=== PATIENT | male | born 1980 | race African-American/Black ===

== ENCOUNTER 2016-04-10 23:43 | Emergency (ER) | payer MEDICARE, OTHER ==
[~2016-04-10 23:43] MED LIST: /CELE20CA PO; BENA25CA PO; DOCU10ELUD PO; GEOD40CA PO; LEVO500T PO; NEUR600T PO; OXYCO5TA PO; TYLE325T5 PO
[2016-04-11] MEDS ORDERED: KETOROLAC 30 MG/ML VIAL (J1885) As Ordered ONE (02:33)
[2016-04-11] MEDS ORDERED: LIDOCAINE VISCOUS 2% SOLN 15ML UDC As Ordered ONE (02:33)
--- NOTE | 2016-04-11 02:45 | EDDOCDS ---
Nurse's Notes [facility] Name: Efrain Marshall Age: 36 yrs Sex: Male : 1980 Arrival Date: 04/10/2016 Time: 23:43 Bed I3 / M3 Private MD: NO PRIMARY PHYSICIAN, . Diagnosis: Streptococcal pharyngitis Presentation: 04/10 23:58 Presenting complaint: Patient states: seen at [facility] earlier today given medications cz pt states has pain in his throat whenever he swallows talks etc. Adult Sepsis Screening: The patient does not have new or worsening altered mentation. Patient's respiratory rate is less than 22. Systolic blood pressure is greater than 100. Patient has a qSOFA score of 0- Negative Sepsis Screen. Suicide/Homicide risk assessment- the patient denies having any suicidal and/or homicidal ideations and does not present with any other emotional, behavioral or mental health complaints. Status: Patient is not a technical services consultant or dependent. Transition of care: patient was not received from another setting of care. 23:58 Acuity: FRANKLIN Level 5 cz 23:58 Method Of Arrival: Walkin/Carried/Asstd cz Triage Assessment: 04/11 00:03 General: Appears in no apparent distress. Pain: Pain currently is 9 out of 10 on a pain cz scale. HIV screening NA for this visit Offered previously. Historical: - Allergies: No known drug Allergies; - Home Meds: 1. zaleplon 10 mg oral cap once daily 2. clonazepam 0.5 mg Oral tab 3 times per day 3. lamotrigine 100 mg Oral tab once daily 4. Lidocaine Viscous Oral (Last dose: 04/10/2016 19:00) 5. amoxicillin 875 mg Oral tab every 12 hours (Last dose: Unknown) - PMHx: anger issues; - PSHx: none; - Social history: Smoking status: Patient uses tobacco products, current some day smoker. No barriers to communication noted, The patient speaks fluent Rwandan, Speaks appropriately for age. - Family history: Not pertinent. - : The pt / caregiver states he / she is not on anticoagulants. Home medication list is obtained from the patient. - Exposure Risk Screening:: None identified. Screenin:41 Screening information is obtained from the patient. Fall risk: No risks identified. jmb Assistance ADL's: requires no assistance with activities of daily living. Abuse/DV Screen: The patient / caregiver reports he/she is: not in a situation that causes fear, pain or injury. Nutritional screening: No deficits noted. Advance Directives: Currently, there is no health care proxy. There is no active DNR order. There is no living will. There is no Power of Plow And Boring Machine Tender. home support is adequate. Assessment: 02:41 General: Patient instructed on discharge instructions. Patient asked if there were any b questions regarding discharge, patient stated no. Patient signed discharge instructions. Patient discharged in stable condition. . Vital Signs: 04/10 23:45 BP 134 / 83; Pulse 89; Resp 18 S; Temp 99.9(O); Pulse Ox 98% on R/A; Weight 105.23 kg gr2 (R); Height 5 ft. 8 in. (172.72 cm) (R); Pain 7/10; 04/11 02:41 BP 128 / 74; Pulse 90; Resp 20; Temp 98.8(TE); Pulse Ox 98% on R/A; Pain 2/10; b 04/10 23:45 Body Mass Index 35.28 (105.23 kg, 172.72 cm) gr2 Vitals: 04/10 23:45 Log In Time: April 10, 2016 at 23:45. gr2 ED Course: 23:45 Patient visited by Cali Chapman. gr2 23:45 NO PRIMARY PHYSICIAN, . is Private Physician. gr2 23:45 Patient moved to Waiting gr2 23:46 Patient visited by Cali Chapman. gr2 23:46 Patient moved to Pre RCE gr2 04/11 00:00 Triage Initiated cz 02:05 Patient visited by Bucky Foster PCA. kb5 02:05 Patient moved to I3 / M3 b 02:23 Homar Newton DO is Attending Physician. mm11 02:23 Patient visited by Homar Newton DO. mm11 02:31 Patient visited by Homar Newton DO. mm11 02:41 The patient / caregiver is instructed regarding the plan of care and ED course. jmb 02:41 No IV's were initiated during this patient's visit. No procedures done that require b assistance. Administered Medications: 02:41 Drug: ketorolac 60 mg [ketorolac 30 mg/mL (1 mL) injection solution (2 mL)] Route: IM; jmb Site: left deltoid; 02:41 Drug: Lidocaine Viscous 15 ml [Lidocaine Viscous 2 % mucosal solution (15 mL)] Route: jmb Mucous Membrane; Site: affected area; Order Results: There are currently no results for this order. Outcome: 02:32 Discharge ordered by Provider. mm11 02:41 Discharge Assessment: Patient awake, alert and oriented x 3. No cognitive and/or jmb functional deficits noted. Patient verbalized understanding of disposition instructions. Patient awake and alert. obeys commands, Oriented to person, place and time. Patient verbalized understanding of disposition instructions. Patient has no functional deficits. patient administered narcotics - no. The following High Risk Discharge criteria are identified: None. Discharged to home ambulatory, with significant other. Condition: stable Condition: improved. Discharge instructions given to patient, Instructed on discharge instructions, follow up and referral plans. Demonstrated understanding of instructions, Pt was receptive of discharge instructions/ teaching. No special radiology studies were completed. Property sent home with patient. 02:44 Patient left the ED. suma Signatures: Dev Saleem, RN RN Bucky Root, LEVEL VIAL INSPECTOR AND TESTER LEVEL VIAL INSPECTOR AND TESTER kb5 Homar Newton DO DO mm11 Cali Chapman gr2 Kamran Hall,RN RN suma MTDD
--- NOTE | 2016-04-11 02:45 | EDDOCDS ---
Physician Documentation [facility] Name: Efrain Marshall Age: 36 yrs Sex: Male : 1980 Arrival Date: 04/10/2016 Time: 23:43 Bed I3 / M3 Private MD: NO PRIMARY PHYSICIAN, . Disposition: 04/11/16 02:32 Discharged to Home/Self Care. Impression: Streptococcal pharyngitis. - Condition is Stable. - Discharge Instructions: Strep Throat, Strep Throat, [id number]. - Medication Reconciliation, Local Pharmacy Hours form. - Follow up: Private Physician; When: 2 - 3 days; Reason: Continuance of care. - Problem is an acute exacerbation. - Symptoms have improved. Historical: - Allergies: No known drug Allergies; - Home Meds: 1. zaleplon 10 mg oral cap once daily 2. clonazepam 0.5 mg Oral tab 3 times per day 3. lamotrigine 100 mg Oral tab once daily 4. Lidocaine Viscous Oral (Last dose: 04/10/2016 19:00) 5. amoxicillin 875 mg Oral tab every 12 hours (Last dose: Unknown) - PMHx: anger issues; - PSHx: none; - Social history: Smoking status: Patient uses tobacco products, current some day smoker. No barriers to communication noted, The patient speaks fluent Turkish, Speaks appropriately for age. - Family history: Not pertinent. - : The pt / caregiver states he / she is not on anticoagulants. Home medication list is obtained from the patient. - Exposure Risk Screening:: None identified. Vital Signs: 04/10 23:45 BP 134 / 83; Pulse 89; Resp 18 S; Temp 99.9(O); Pulse Ox 98% on R/A; Weight 105.23 kg / gr2 231.99 lbs (R); Height 5 ft. 8 in. (172.72 cm) (R); Pain 7/10; 04/11 02:41 BP 128 / 74; Pulse 90; Resp 20; Temp 98.8(TE); Pulse Ox 98% on R/A; Pain 2/10; jmb 04/10 23:45 Body Mass Index 35.28 (105.23 kg, 172.72 cm) gr2 MDM: 02:31 ketorolac 60 mg IM once ordered. mm11 02:31 Lidocaine Viscous Liquid 2 % 15 ml Mucous Membrane in affected area once ordered. mm11 02:42 Financial registration complete. hs2 Administered Medications: 02:41 Drug: ketorolac 60 mg [ketorolac 30 mg/mL (1 mL) injection solution (2 mL)] Route: IM; jmb Site: left deltoid; 02:41 Drug: Lidocaine Viscous 15 ml [Lidocaine Viscous 2 % mucosal solution (15 mL)] Route: jmb Mucous Membrane; Site: affected area; Signatures: Dev Saleem RN RN cz Maynard, Matthew, DO mm11 Kamran Hall RN RN jmb Sandra Newman, Reg Reg hs2 MTDD
--- NOTE | 2016-04-13 03:45 | EDDOCDS ---
Nurse's Notes [facility] Name: Efrain Marshall Age: 36 yrs Sex: Male : 1980 Arrival Date: 04/10/2016 Time: 23:43 Bed I3 / M3 Private MD: NO PRIMARY PHYSICIAN, . Diagnosis: Streptococcal pharyngitis Presentation: 04/10 23:58 Presenting complaint: Patient states: seen at [facility] earlier today given medications cz pt states has pain in his throat whenever he swallows talks etc. Adult Sepsis Screening: The patient does not have new or worsening altered mentation. Patient's respiratory rate is less than 22. Systolic blood pressure is greater than 100. Patient has a qSOFA score of 0- Negative Sepsis Screen. Suicide/Homicide risk assessment- the patient denies having any suicidal and/or homicidal ideations and does not present with any other emotional, behavioral or mental health complaints. Status: Patient is not a guest services representative or dependent. Transition of care: patient was not received from another setting of care. 23:58 Acuity: FRANKLIN Level 5 cz 23:58 Method Of Arrival: Walkin/Carried/Asstd cz Triage Assessment: 04/11 00:03 General: Appears in no apparent distress. Pain: Pain currently is 9 out of 10 on a pain cz scale. HIV screening NA for this visit Offered previously. Historical: - Allergies: No known drug Allergies; - Home Meds: 1. zaleplon 10 mg oral cap once daily 2. clonazepam 0.5 mg Oral tab 3 times per day 3. lamotrigine 100 mg Oral tab once daily 4. Lidocaine Viscous Oral (Last dose: 04/10/2016 19:00) 5. amoxicillin 875 mg Oral tab every 12 hours (Last dose: Unknown) - PMHx: anger issues; - PSHx: none; - Social history: Smoking status: Patient uses tobacco products, current some day smoker. No barriers to communication noted, The patient speaks fluent Central African, Speaks appropriately for age. - Family history: Not pertinent. - : The pt / caregiver states he / she is not on anticoagulants. Home medication list is obtained from the patient. - Exposure Risk Screening:: None identified. Screenin:41 Screening information is obtained from the patient. Fall risk: No risks identified. jmb Assistance ADL's: requires no assistance with activities of daily living. Abuse/DV Screen: The patient / caregiver reports he/she is: not in a situation that causes fear, pain or injury. Nutritional screening: No deficits noted. Advance Directives: Currently, there is no health care proxy. There is no active DNR order. There is no living will. There is no Power of Arabic Professor. home support is adequate. Assessment: 02:41 General: Patient instructed on discharge instructions. Patient asked if there were any b questions regarding discharge, patient stated no. Patient signed discharge instructions. Patient discharged in stable condition. . Vital Signs: 04/10 23:45 BP 134 / 83; Pulse 89; Resp 18 S; Temp 99.9(O); Pulse Ox 98% on R/A; Weight 105.23 kg gr2 (R); Height 5 ft. 8 in. (172.72 cm) (R); Pain 7/10; 04/11 02:41 BP 128 / 74; Pulse 90; Resp 20; Temp 98.8(TE); Pulse Ox 98% on R/A; Pain 2/10; b 04/10 23:45 Body Mass Index 35.28 (105.23 kg, 172.72 cm) gr2 Vitals: 04/10 23:45 Log In Time: April 10, 2016 at 23:45. gr2 ED Course: 23:45 Patient visited by Cali Chapman. gr2 23:45 NO PRIMARY PHYSICIAN, . is Private Physician. gr2 23:45 Patient moved to Waiting gr2 23:46 Patient visited by Cali Chapman. gr2 23:46 Patient moved to Pre RCE gr2 04/11 00:00 Triage Initiated cz 02:05 Patient visited by Bucky Foster PCA. kb5 02:05 Patient moved to I3 / M3 [place] 02:23 Homar Newton DO is Attending Physician. mm11 02:23 Patient visited by Homar Newton DO. mm11 02:31 Patient visited by Homar Newton DO. mm11 02:41 The patient / caregiver is instructed regarding the plan of care and ED course. b 02:41 No IV's were initiated during this patient's visit. No procedures done that require b assistance. 03:10 [facility] Payment Agreement was scanned into [employer] and attached to record. hs2 10:20 T-Sheet-- Draft Copy was scanned into [employer] and attached to record. gb Administered Medications: 02:41 Drug: ketorolac 60 mg [ketorolac 30 mg/mL (1 mL) injection solution (2 mL)] Route: IM; jmb Site: left deltoid; 02:41 Drug: Lidocaine Viscous 15 ml [Lidocaine Viscous 2 % mucosal solution (15 mL)] Route: jmb Mucous Membrane; Site: affected area; Order Results: There are currently no results for this order. Outcome: 02:32 Discharge ordered by Provider. mm11 02:41 Discharge Assessment: Patient awake, alert and oriented x 3. No cognitive and/or jmb functional deficits noted. Patient verbalized understanding of disposition instructions. Patient awake and alert. obeys commands, Oriented to person, place and time. Patient verbalized understanding of disposition instructions. Patient has no functional deficits. patient administered narcotics - no. The following High Risk Discharge criteria are identified: None. Discharged to home ambulatory, with significant other. Condition: stable Condition: improved. Discharge instructions given to patient, Instructed on discharge instructions, follow up and referral plans. Demonstrated understanding of instructions, Pt was receptive of discharge instructions/ teaching. No special radiology studies were completed. Property sent home with patient. 02:44 Patient left the ED. suma Signatures: Dev Saleem, RN Christelle Rodriguez, Reg Reg gb Bucky Foster, NATURAL GAS BASIS TRADER NATURAL GAS BASIS TRADER kb5 Homar Newton DO DO mm11 Cali Chapman gr2 Kamran Hall RN RN jmb Stanton, Hillary, Reg Reg hs2 Chart Complete MTDD
--- NOTE | 2016-04-13 03:45 | EDDOCDS ---
Physician Documentation [facility] Name: Efrain Marshall Age: 36 yrs Sex: Male : 1980 Arrival Date: 04/10/2016 Time: 23:43 Bed I3 / M3 Private MD: NO PRIMARY PHYSICIAN, . Disposition: 04/11/16 02:32 Discharged to Home/Self Care. Impression: Streptococcal pharyngitis. - Condition is Stable. - Discharge Instructions: Strep Throat, Strep Throat, [id number]. - Medication Reconciliation, Local Pharmacy Hours form. - Follow up: Private Physician; When: 2 - 3 days; Reason: Continuance of care. - Problem is an acute exacerbation. - Symptoms have improved. Historical: - Allergies: No known drug Allergies; - Home Meds: 1. zaleplon 10 mg oral cap once daily 2. clonazepam 0.5 mg Oral tab 3 times per day 3. lamotrigine 100 mg Oral tab once daily 4. Lidocaine Viscous Oral (Last dose: 04/10/2016 19:00) 5. amoxicillin 875 mg Oral tab every 12 hours (Last dose: Unknown) - PMHx: anger issues; - PSHx: none; - Social history: Smoking status: Patient uses tobacco products, current some day smoker. No barriers to communication noted, The patient speaks fluent Arabic, Speaks appropriately for age. - Family history: Not pertinent. - : The pt / caregiver states he / she is not on anticoagulants. Home medication list is obtained from the patient. - Exposure Risk Screening:: None identified. Vital Signs: 04/10 23:45 BP 134 / 83; Pulse 89; Resp 18 S; Temp 99.9(O); Pulse Ox 98% on R/A; Weight 105.23 kg / gr2 231.99 lbs (R); Height 5 ft. 8 in. (172.72 cm) (R); Pain 7/10; 04/11 02:41 BP 128 / 74; Pulse 90; Resp 20; Temp 98.8(TE); Pulse Ox 98% on R/A; Pain 2/10; jmb 04/10 23:45 Body Mass Index 35.28 (105.23 kg, 172.72 cm) gr2 MDM: 02:31 ketorolac 60 mg IM once ordered. mm11 02:31 Lidocaine Viscous Liquid 2 % 15 ml Mucous Membrane in affected area once ordered. mm11 02:42 Financial registration complete. hs2 03:10 [facility] Payment Agreement was scanned into [employer] and attached to record. hs2 10:20 T-Sheet-- Draft Copy was scanned into [employer] and attached to record. gb Administered Medications: 02:41 Drug: ketorolac 60 mg [ketorolac 30 mg/mL (1 mL) injection solution (2 mL)] Route: IM; jmb Site: left deltoid; 02:41 Drug: Lidocaine Viscous 15 ml [Lidocaine Viscous 2 % mucosal solution (15 mL)] Route: jmb Mucous Membrane; Site: affected area; Signatures: Dev Saleem, Christelle Rodriguez RN, Reg Reg gb Homar Newton DO DO mm11 Kamran Hall RN RN jmb Sandra Newman, Reg Reg hs2 The chart was reviewed and I authenticate all verbal orders and agree with the evaluation and treatment provided.Attachments: 03:10 [facility] Payment Agreement hs2 10:20 T-Sheet-- Draft Copy gb Chart Complete [facility]
--- NOTE | 2016-04-13 03:45 | EDDOCDS ---
Physician Documentation [facility] Name: Efrain Marshall Age: 36 yrs Sex: Male : 1980 Arrival Date: 04/10/2016 Time: 23:43 Bed I3 / M3 Private MD: NO PRIMARY PHYSICIAN, . Disposition: 04/11/16 02:32 Discharged to Home/Self Care. Impression: Streptococcal pharyngitis. - Condition is Stable. - Discharge Instructions: Strep Throat, Strep Throat, [id number]. - Medication Reconciliation, Local Pharmacy Hours form. - Follow up: Private Physician; When: 2 - 3 days; Reason: Continuance of care. - Problem is an acute exacerbation. - Symptoms have improved. Historical: - Allergies: No known drug Allergies; - Home Meds: 1. zaleplon 10 mg oral cap once daily 2. clonazepam 0.5 mg Oral tab 3 times per day 3. lamotrigine 100 mg Oral tab once daily 4. Lidocaine Viscous Oral (Last dose: 04/10/2016 19:00) 5. amoxicillin 875 mg Oral tab every 12 hours (Last dose: Unknown) - PMHx: anger issues; - PSHx: none; - Social history: Smoking status: Patient uses tobacco products, current some day smoker. No barriers to communication noted, The patient speaks fluent Lao, Speaks appropriately for age. - Family history: Not pertinent. - : The pt / caregiver states he / she is not on anticoagulants. Home medication list is obtained from the patient. - Exposure Risk Screening:: None identified. Vital Signs: 04/10 23:45 BP 134 / 83; Pulse 89; Resp 18 S; Temp 99.9(O); Pulse Ox 98% on R/A; Weight 105.23 kg / gr2 231.99 lbs (R); Height 5 ft. 8 in. (172.72 cm) (R); Pain 7/10; 04/11 02:41 BP 128 / 74; Pulse 90; Resp 20; Temp 98.8(TE); Pulse Ox 98% on R/A; Pain 2/10; jmb 04/10 23:45 Body Mass Index 35.28 (105.23 kg, 172.72 cm) gr2 MDM: 02:31 ketorolac 60 mg IM once ordered. mm11 02:31 Lidocaine Viscous Liquid 2 % 15 ml Mucous Membrane in affected area once ordered. mm11 02:42 Financial registration complete. hs2 03:10 [facility] Payment Agreement was scanned into [employer] and attached to record. hs2 10:20 T-Sheet-- Draft Copy was scanned into [employer] and attached to record. gb Administered Medications: 02:41 Drug: ketorolac 60 mg [ketorolac 30 mg/mL (1 mL) injection solution (2 mL)] Route: IM; jmb Site: left deltoid; 02:41 Drug: Lidocaine Viscous 15 ml [Lidocaine Viscous 2 % mucosal solution (15 mL)] Route: jmb Mucous Membrane; Site: affected area; Signatures: Dev Saleem, Christelle Rodriguez RN, Reg Reg gb Homar Newton DO DO mm11 Kamran Hall RN RN jmb Sandra Newman, Reg Reg hs2 The chart was reviewed and I authenticate all verbal orders and agree with the evaluation and treatment provided.Attachments: 03:10 [facility] Payment Agreement hs2 10:20 T-Sheet-- Draft Copy gb Chart [facility]
== END 2016-04-11 02:44 | disposition home or self-care (01) ==
LOC: M ED 23:43
DX: J02.0 Streptococcal pharyngitis (principal); F17.210 Nicotine dependence, cigarettes, uncomplicated; Z79.899 Other long term (current) drug therapy
CPT/HCPCS: 96372; 99283; J1885

== ENCOUNTER 2016-04-12 18:55 | Emergency (ER) | payer MEDICARE ==
--- NOTE | 2016-04-12 20:34 | EDDOCDS ---
Nurse's Notes [facility] Name: Efrain Marshall Age: 36 yrs Sex: Male : 1980 Arrival Date: 04/12/2016 Time: 18:55 Bed TR8 Private MD: NO PRIMARY PHYSICIAN, . Diagnosis: Streptococcal pharyngitis;Acute tonsillitis Presentation: 04/12 19:02 Presenting complaint: Patient states: "I was seen here last night for the same thing mb9 and they told me to come back if it didn't get any better and tonight it hurts to swallow and the pain is like a 10". Adult Sepsis Screening: The patient does not have new or worsening altered mentation. Patient's respiratory rate is less than 22. Systolic blood pressure is greater than 100. Patient has a qSOFA score of 0- Negative Sepsis Screen. Suicide/Homicide risk assessment- the patient denies having any suicidal and/or homicidal ideations and does not present with any other emotional, behavioral or mental health complaints. Status: Patient is not a business services officer or dependent. Transition of care: patient was not received from another setting of care. 19:02 Acuity: FRANKLIN Level 4 mb9 19:02 Method Of Arrival: Walkin/Carried/Asstd mb9 Triage Assessment: 19:07 General: Appears in no apparent distress, Behavior is appropriate for age, cooperative. mb9 Pain: Location: neck Pain currently is 10 out of 10 on a pain scale. HIV screening NA for this visit Offered previously. EENT: Throat is reddened. Respiratory: Airway is patent Respiratory effort is even, unlabored. Historical: - Allergies: no known allergies; - Home Meds: 1. amoxicillin 875 mg Oral tab every 12 hours (Last dose: 04/12/2016) 2. clonazepam 0.5 mg Oral tab 3 times per day (Last dose: 04/12/2016) 3. lamotrigine 200 mg oral tab once daily (Last dose: 04/11/2016) 4. trazodone 150 mg Oral tab 1 tab at bedtime - PMHx: Anger issues; - PSHx: none; - Social history: Smoking status: Patient uses tobacco products, current some day smoker. No barriers to communication noted. - Family history: Not pertinent, No immediate family members are acutely ill. - : The pt / caregiver states he / she is not on anticoagulants. Home medication list is obtained from the patient. - Exposure Risk Screening:: None identified. Screenin:30 Screening information is obtained from the patient. Fall risk: No risks identified. kmg1 Assistance ADL's: requires no assistance with activities of daily living. Abuse/DV Screen: The patient / caregiver reports he/she is: not in a situation that causes fear, pain or injury. Nutritional screening: No deficits noted. Advance Directives: There is no active DNR order. home support is adequate. Assessment: 20:30 General: Appears in no apparent distress, ill, Behavior is appropriate for age, kmg1 cooperative. Pain: Location: throat Pain currently is 6 out of 10 on a pain scale. Quality of pain is described as sore. Neurological: No deficits noted. Level of Consciousness is awake, alert. Respiratory: Airway is patent Respiratory effort is even, unlabored, Respiratory pattern is regular, symmetrical. Vital Signs: 18:57 BP 134 / 79; Pulse 105; Resp 18 S; Temp 98.1(O); Pulse Ox 98% on R/A; Weight 107.05 kg gr2 (R); Height 5 ft. 8 in. (172.72 cm) (R); Pain 6/10; 18:57 Body Mass Index 35.88 (107.05 kg, 172.72 cm) gr2 Vitals: 18:57 Log In Time: April 12, 2016 at 18:57. gr2 ED Course: 18:56 Patient visited by Cali Chapman. gr2 18:56 Patient moved to Waiting gr2 18:57 NO PRIMARY PHYSICIAN, . is Private Physician. gr2 18:59 Patient visited by Cali Chapman. gr2 19:03 Triage Initiated mb9 19:04 Patient moved to Pre RCE mcp 19:36 Patient moved to Triage 1 mb9 19:44 Miriam Levy PA-C is PHCP. ef1 19:44 Homar Newton DO is Attending Physician. ef1 20:02 Patient visited by Miriam Levy PA-C. ef1 20:15 [facility] is Referral Physician. ef1 20:19 [facility] Payment Agreement was scanned into [employer] and attached to record. gjb 20:30 The patient / caregiver is instructed regarding the plan of care and ED course. kmg1 20:30 No IV's were initiated during this patient's visit. No procedures done that require [facility] [place] assistance. 20:31 Patient moved to [address] Order Results: There are currently no results for this order. Outcome: 20:15 Discharge ordered by Provider. ef1 20:30 Discharge Assessment: Patient awake, alert and oriented x 3. No cognitive and/or kmg1 functional deficits noted. Patient verbalized understanding of disposition instructions. Patient awake and alert. patient administered narcotics - no. The following High Risk Discharge criteria are identified: None. Discharged to home ambulatory. Condition: stable. Discharge instructions given to patient, Instructed on discharge instructions, follow up and referral plans. medication usage, Demonstrated understanding of instructions, medications, Pt was receptive of discharge instructions/ teaching. Prescriptions given X 3. No special radiology studies were completed. Property sent home with patient. 20:33 Patient left the ED. [facility] [place] Signatures: Tatyana Pak RN RN [facility] [place] Eneida Griffin RN RN mcp Feola, Erica, PA-C PA-C ef1 Renata Alvarado RN RN [facility] Cali Chapman gr2 Jameson AllenRN RN jose9 Sherry Arriaga Corrections: (The following items were deleted from the chart) 19:07 19:02 Presenting complaint: Patient states: "I was seen here last night for the same mb9 thing and they told me to come back if it didn't get any better and tonight it hurts to swallow and the pain is like a 10". mb9 MTDD
--- NOTE | 2016-04-12 20:34 | EDDOCDS ---
Physician Documentation [facility] Name: Efrain Marshall Age: 36 yrs Sex: Male : 1980 Arrival Date: 04/12/2016 Time: 18:55 Bed TR8 Private MD: NO PRIMARY PHYSICIAN, . Disposition: 04/12/16 20:15 Discharged to Home/Self Care. Impression: Streptococcal pharyngitis, Acute tonsillitis. - Condition is Stable. - Discharge Instructions: Tonsillitis, Ecee-ha-[id number], Strep Throat, [id number]. - Prescriptions for Ibuprofen 800 mg Oral Tablet - take 1 tablet by ORAL route every 8 hours As needed take with food; 30 tablet. Prednisone 20 mg Oral Tablet - take 3 tablet by ORAL route once daily for 5 days; 15 tablet. Tylenol 325 mg Oral Tablet - take 2 tablets by ORAL route every 6 hours as needed; 30 tablet. - Medication Reconciliation, Local Pharmacy Hours, Referral List Call for Appointment form. - [facility]: [facility] ; When: 1 - 2 days; Reason: Recheck today's complaints, Continuance of care. Follow up: Emergency Department; Reason: Worsening of conditions. - Problem is new. - Symptoms are unchanged. Historical: - Allergies: no known allergies; - Home Meds: 1. amoxicillin 875 mg Oral tab every 12 hours (Last dose: 04/12/2016) 2. clonazepam 0.5 mg Oral tab 3 times per day (Last dose: 04/12/2016) 3. lamotrigine 200 mg oral tab once daily (Last dose: 04/11/2016) 4. trazodone 150 mg Oral tab 1 tab at bedtime - PMHx: Anger issues; - PSHx: none; - Social history: Smoking status: Patient uses tobacco products, current some day smoker. No barriers to communication noted. - Family history: Not pertinent, No immediate family members are acutely ill. - : The pt / caregiver states he / she is not on anticoagulants. Home medication list is obtained from the patient. - Exposure Risk Screening:: None identified. Vital Signs: 04/12 18:57 BP 134 / 79; Pulse 105; Resp 18 S; Temp 98.1(O); Pulse Ox 98% on R/A; Weight 107.05 kg gr2 / 236 lbs (R); Height 5 ft. 8 in. (172.72 cm) (R); Pain 6/10; 18:57 Body Mass Index 35.88 (107.05 kg, 172.72 cm) gr2 MDM: 19:45 Misc. Nursing Order ordered. ef1 20:17 Financial registration complete. gjb 20:19 [facility] Payment Agreement was scanned into [employer] and attached to record. gjb Signatures: Tatyana Pak RN RN kmg1 Miriam Levy, PACelestinaC PA-C ef1 Jameson Allen RN RN mb9 Sherry Arriagab The chart was reviewed and I authenticate all verbal orders and agree with the evaluation and treatment provided.Attachments: 20:19 [facility] [place] Payment Agreement gjb MTDD
--- NOTE | 2016-04-14 21:34 | EDDOCDS ---
Physician Documentation [facility] Name: Efrain Marshall Age: 36 yrs Sex: Male : 1980 Arrival Date: 04/12/2016 Time: 18:55 Bed TR8 Private MD: NO PRIMARY PHYSICIAN, . Disposition: 04/12/16 20:15 Discharged to Home/Self Care. Impression: Streptococcal pharyngitis, Acute tonsillitis. - Condition is Stable. - Discharge Instructions: Tonsillitis, [id number], Strep Throat, [id number]. - Prescriptions for Ibuprofen 800 mg Oral Tablet - take 1 tablet by ORAL route every 8 hours As needed take with food; 30 tablet. Prednisone 20 mg Oral Tablet - take 3 tablet by ORAL route once daily for 5 days; 15 tablet. Tylenol 325 mg Oral Tablet - take 2 tablets by ORAL route every 6 hours as needed; 30 tablet. - Medication Reconciliation, Local Pharmacy Hours, Referral List Call for Appointment form. - Follow up: [facility] ; When: 1 - 2 days; Reason: Recheck today's complaints, Continuance of care. Follow up: Emergency Department; Reason: Worsening of conditions. - Problem is new. - Symptoms are unchanged. Historical: - Allergies: no known allergies; - Home Meds: 1. amoxicillin 875 mg Oral tab every 12 hours (Last dose: 04/12/2016) 2. clonazepam 0.5 mg Oral tab 3 times per day (Last dose: 04/12/2016) 3. lamotrigine 200 mg oral tab once daily (Last dose: 04/11/2016) 4. trazodone 150 mg Oral tab 1 tab at bedtime - PMHx: Anger issues; - PSHx: none; - Social history: Smoking status: Patient uses tobacco products, current some day smoker. No barriers to communication noted. - Family history: Not pertinent, No immediate family members are acutely ill. - : The pt / caregiver states he / she is not on anticoagulants. Home medication list is obtained from the patient. - Exposure Risk Screening:: None identified. Vital Signs: 04/12 18:57 BP 134 / 79; Pulse 105; Resp 18 S; Temp 98.1(O); Pulse Ox 98% on R/A; Weight 107.05 kg gr2 / 236 lbs (R); Height 5 ft. 8 in. (172.72 cm) (R); Pain 09/02; 18:57 Body Mass Index 35.88 (107.05 kg, 172.72 cm) gr2 MDM: 19:45 Misc. Nursing Order ordered. ef1 :17 Financial registration complete. gjb : [facility] Payment Agreement was scanned into [employer] and attached to record. gjb 04/13 10:10 T-Sheet-- Draft Copy was scanned into [employer] and attached to record. gb Signatures: Tatyana Pak, RN RN kmg1 Christelle Driver, Reg Reg gb Miriam Levy, PA-C PA-C ef1 Jameson AllenRN RN mb9 Sherry Arriagab The chart was reviewed and I authenticate all verbal orders and agree with the evaluation and treatment provided.Attachments: 04/12 20:19 [facility] Payment Agreement b 04/13 10:10 T-Sheet-- Draft Copy gb Chart Complete MTDD
--- NOTE | 2016-04-14 21:34 | EDDOCDS ---
Physician Documentation [facility] Name: Efrain Marshall Age: 36 yrs Sex: Male : 1980 Arrival Date: 04/12/2016 Time: 18:55 Bed TR8 Private MD: NO PRIMARY PHYSICIAN, . Disposition: 04/12/16 20:15 Discharged to Home/Self Care. Impression: Streptococcal pharyngitis, Acute tonsillitis. - Condition is Stable. - Discharge Instructions: Tonsillitis, Ekaa-[id number], Strep Throat, Igtv-ro-Jwyo. - Prescriptions for Ibuprofen 800 mg Oral Tablet - take 1 tablet by ORAL route every 8 hours As needed take with food; 30 tablet. Prednisone 20 mg Oral Tablet - take 3 tablet by ORAL route once daily for 5 days; 15 tablet. Tylenol 325 mg Oral Tablet - take 2 tablets by ORAL route every 6 hours as needed; 30 tablet. - Medication Reconciliation, Local Pharmacy Hours, Referral List Call for Appointment form. - Follow up: [facility] ; When: 1 - 2 days; Reason: Recheck today's complaints, Continuance of care. Follow up: Emergency Department; Reason: Worsening of conditions. - Problem is new. - Symptoms are unchanged. Historical: - Allergies: no known allergies; - Home Meds: 1. amoxicillin 875 mg Oral tab every 12 hours (Last dose: 04/12/2016) 2. clonazepam 0.5 mg Oral tab 3 times per day (Last dose: 04/12/2016) 3. lamotrigine 200 mg oral tab once daily (Last dose: 04/11/2016) 4. trazodone 150 mg Oral tab 1 tab at bedtime - PMHx: Anger issues; - PSHx: none; - Social history: Smoking status: Patient uses tobacco products, current some day smoker. No barriers to communication noted. - Family history: Not pertinent, No immediate family members are acutely ill. - : The pt / caregiver states he / she is not on anticoagulants. Home medication list is obtained from the patient. - Exposure Risk Screening:: None identified. Vital Signs: 04/12 18:57 BP 134 / 79; Pulse 105; Resp 18 S; Temp 98.1(O); Pulse Ox 98% on R/A; Weight 107.05 kg gr2 / 236 lbs (R); Height 5 ft. 8 in. (172.72 cm) (R); Pain 09/02; 18:57 Body Mass Index 35.88 (107.05 kg, 172.72 cm) gr2 MDM: 19:45 Misc. Nursing Order ordered. ef1 :17 Financial registration complete. gjb : [facility] Payment Agreement was scanned into [employer] and attached to record. gjb 04/13 10:10 T-Sheet-- Draft Copy was scanned into [employer] and attached to record. gb Signatures: Tatyana Pak, RN RN kmg1 Christelle Driver, Reg Reg gb Miriam Levy, PA-C PA-C ef1 Jameson AllenRN RN mb9 Sherry Arriagab The chart was reviewed and I authenticate all verbal orders and agree with the evaluation and treatment provided.Attachments: 04/12 20:19 [facility] Payment Agreement b 04/13 10:10 T-Sheet-- Draft Copy gb Chart Complete MTDD
--- NOTE | 2016-04-14 21:34 | EDDOCDS ---
Nurse's Notes [facility] Name: Efrain Marshall Age: 36 yrs Sex: Male : 1980 Arrival Date: 04/12/2016 Time: 18:55 Bed TR8 Private MD: NO PRIMARY PHYSICIAN, . Diagnosis: Streptococcal pharyngitis;Acute tonsillitis Presentation: 04/12 19:02 Presenting complaint: Patient states: "I was seen here last night for the same thing mb9 and they told me to come back if it didn't get any better and tonight it hurts to swallow and the pain is like a 10". Adult Sepsis Screening: The patient does not have new or worsening altered mentation. Patient's respiratory rate is less than 22. Systolic blood pressure is greater than 100. Patient has a qSOFA score of 0- Negative Sepsis Screen. Suicide/Homicide risk assessment- the patient denies having any suicidal and/or homicidal ideations and does not present with any other emotional, behavioral or mental health complaints. Status: Patient is not a child and family services specialist or dependent. Transition of care: patient was not received from another setting of care. 19:02 Acuity: FRANKLIN Level 4 mb9 19:02 Method Of Arrival: Walkin/Carried/Asstd mb9 Triage Assessment: 19:07 General: Appears in no apparent distress, Behavior is appropriate for age, cooperative. mb9 Pain: Location: neck Pain currently is 10 out of 10 on a pain scale. HIV screening NA for this visit Offered previously. EENT: Throat is reddened. Respiratory: Airway is patent Respiratory effort is even, unlabored. Historical: - Allergies: no known allergies; - Home Meds: 1. amoxicillin 875 mg Oral tab every 12 hours (Last dose: 04/12/2016) 2. clonazepam 0.5 mg Oral tab 3 times per day (Last dose: 04/12/2016) 3. lamotrigine 200 mg oral tab once daily (Last dose: 04/11/2016) 4. trazodone 150 mg Oral tab 1 tab at bedtime - PMHx: Anger issues; - PSHx: none; - Social history: Smoking status: Patient uses tobacco products, current some day smoker. No barriers to communication noted. - Family history: Not pertinent, No immediate family members are acutely ill. - : The pt / caregiver states he / she is not on anticoagulants. Home medication list is obtained from the patient. - Exposure Risk Screening:: None identified. Screenin:30 Screening information is obtained from the patient. Fall risk: No risks identified. kmg1 Assistance ADL's: requires no assistance with activities of daily living. Abuse/DV Screen: The patient / caregiver reports he/she is: not in a situation that causes fear, pain or injury. Nutritional screening: No deficits noted. Advance Directives: There is no active DNR order. home support is adequate. Assessment: 20:30 General: Appears in no apparent distress, ill, Behavior is appropriate for age, kmg1 cooperative. Pain: Location: throat Pain currently is 6 out of 10 on a pain scale. Quality of pain is described as sore. Neurological: No deficits noted. Level of Consciousness is awake, alert. Respiratory: Airway is patent Respiratory effort is even, unlabored, Respiratory pattern is regular, symmetrical. Vital Signs: 18:57 BP 134 / 79; Pulse 105; Resp 18 S; Temp 98.1(O); Pulse Ox 98% on R/A; Weight 107.05 kg gr2 (R); Height 5 ft. 8 in. (172.72 cm) (R); Pain 6/10; 18:57 Body Mass Index 35.88 (107.05 kg, 172.72 cm) gr2 Vitals: 18:57 Log In Time: April 12, 2016 at 18:57. gr2 ED Course: 18:56 Patient visited by Cali Chapman. gr2 18:56 Patient moved to Waiting gr2 18:57 NO PRIMARY PHYSICIAN, . is Private Physician. gr2 18:59 Patient visited by Cali Chapman. gr2 19:03 Triage Initiated mb9 19:04 Patient moved to Pre RCE mcp 19:36 Patient moved to Triage 1 mb9 19:44 Miriam Levy PA-C is PHCP. ef1 19:44 Homar Newton DO is Attending Physician. ef1 20:02 Patient visited by Miriam Levy PA-C. ef1 20:15 [facility] is Referral Physician. ef1 20:19 [facility] [place] Agreement was scanned into [employer] and attached to record. gjb 20:30 The patient / caregiver is instructed regarding the plan of care and ED course. kmg1 20:30 No IV's were initiated during this patient's visit. No procedures done that require [facility] assistance. 20:31 Patient moved to [address] 04/13 10:10 T-Sheet-- Draft Copy was scanned into [employer] and attached to record. Order Results: There are currently no results for this order. Outcome: 04/12 20:15 Discharge ordered by Provider. ef1 20:30 Discharge Assessment: Patient awake, alert and oriented x 3. No cognitive and/or kmg1 functional deficits noted. Patient verbalized understanding of disposition instructions. Patient awake and alert. patient administered narcotics - no. The following High Risk Discharge criteria are identified: None. Discharged to home ambulatory. Condition: stable. Discharge instructions given to patient, Instructed on discharge instructions, follow up and referral plans. medication usage, Demonstrated understanding of instructions, medications, Pt was receptive of discharge instructions/ teaching. Prescriptions given X 3. No special radiology studies were completed. Property sent home with patient. 20:33 Patient left the ED. [facility] Signatures: Tatyana Pak RN RN [facility] Eneida Griffin RN [facility] Christelle Driver, Reg Reg gb Miriam Levy, PA-C PA-C ef1 Renata Alvarado,RN RN [facility] Cali Chapman gr2 Jameson Allen,RN RN jose9 Sherry Arriaga Corrections: (The following items were deleted from the chart) 19:07 19:02 Presenting complaint: Patient states: "I was seen here last night for the same mb9 thing and they told me to come back if it didn't get any better and tonight it hurts to swallow and the pain is like a 10". mb9 Chart Complete MTDD
== END 2016-04-12 20:33 | disposition home or self-care (01) ==
LOC: M ED 18:55
DX: J02.0 Streptococcal pharyngitis (principal); R45.4 Irritability and anger; Z79.899 Other long term (current) drug therapy; Z79.2 Long term (current) use of antibiotics

== ENCOUNTER 2016-04-25 09:55 | Emergency (ER) | payer MEDICARE ==
[2016-04-25] MEDS ORDERED: FLUORESCEIN OPHTH 1 MG STRIP As Ordered ONE (12:20)
[2016-04-25] MEDS ORDERED: TETRACAINE 0.5% OPHTH SOLN 4ML As Ordered ONE (12:20)
--- NOTE | 2016-04-25 13:03 | REP ---
CT BRAIN WITHOUT CONTRAST: 04/25/2016 COMPARISON: 10/08/2012. CLINICAL HISTORY: Trauma right temporal region. FINDINGS: Pedicles are midline, symmetric and without dilatation or displacement. Third and fourth ventricles are intact. Basal ganglia symmetric and normal. The alvarez-white junction differentiation well maintained and no abnormalities off the white matter tracts. Cortical stripe preserved. There is hyperostosis along the inner table of both frontal and parietal regions as on previous study. All this is unchanged. There is no intracranial hemorrhage, acute infarct, mass or mass effect. Brainstem is unremarkable. Cerebellum intact. Basal cisterns intact. Visualized mastoids and sinuses are clear. The calvarium and skull base show no fracture or focal lesion. There is no evidence of coup or contrecoup injury. There is subtle slight increased thickness of the right compared to left temporal region may reflect a small amount of swelling in the right scalp musculature compared to the left. No foreign body evident. IMPRESSION: 1. No intracranial hemorrhage, edema, mass or other parenchymal brain finding. 2. Calcifications in the falx and hyperostosis of the inner table anteriorly and posterior in the skull, unchanged from previous study in 2012. No acute bony finding or fracture of the calvarium or skull base. Mastoids and sinuses clear. 3. Some mild swelling over the right temporal scalp only. Signed by Manuel Khalil MD 04/25/2016 05:58 P
--- NOTE | 2016-04-25 13:06 | REP ---
CT MAXILLOFACIAL WITHOUT CONTRAST: 04/25/2016 COMPARISON: 03/16/2011 CLINICAL HISTORY: Trauma right orbit and mandible. FINDINGS: The orbital floors, medial orbital gonsalves and lateral struts are all intact. Roof of the orbit and frontal sinuses intact. There are no air-fluid levels in mucosal thickening in the frontal, ethmoid, sphenoid or maxillary sinuses on either side. The OMCs are patent. There are bilateral Shiraz cells, right larger than left. Zygomatic arches are intact. The mandibular condyles articulate normally with the condylar fossa of the skull base. No fractures of the condyles, coronoid process, rami or alveolar ridge of the mandible. First molars are absent on each side in the mandible only. All dentition in the axilla intact. Maxillary bone shows no fracture. The nasal spine intact. The nasal bones and septum grossly intact. Orbits show some supraorbital minor swelling on the right compared to left as well as mid cheek. There is no intraconal abnormality. Globes, optic nerves and extraocular muscles intact and symmetric. Visualized mastoids and the parotid glands are all unremarkable. Submandibular glands symmetric and normal. There is no adenopathy in the visualized neck. IMPRESSION: 1. Periorbital soft tissue swelling in the supraorbital and malar region about the right orbit as well as very slight asymmetric thickening of the right compared to left temporal musculature. This may be anatomic variant or trauma to that muscle. No foreign body, skull fracture, facial bone fractures sinus abnormality or intraorbital abnormality. Signed by Manuel Khalil MD 04/25/2016 05:58 P
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
--- NOTE | 2016-04-25 13:47 | EDDOCDS ---
Physician Documentation [facility] Name: Efrain Marshall Age: 36 yrs Sex: Male : 1980 Arrival Date: 04/25/2016 Time: 09:55 Bed I10 Private MD: NO PRIMARY PHYSICIAN, . Disposition: 04/25/16 13:22 Discharged to Home/Self Care. Impression: Conjunctival hemorrhage, right eye - traumatic, Unspecified injury of head. - Condition is Stable. - Discharge Instructions: Head Injury, Adult, Subconjunctival Hemorrhage. - Prescriptions for tobramycin 0.3 % Ophthalmic drops - instill 1 drop by OPHTHALMIC route every 4 hours for 5 days; 1 bottle. - Medication Reconciliation, Local Pharmacy Hours form. - [facility]; When: Call to arrange an appointment; Reason: Recheck today's complaints, To establish care. Follow up: Homar Guerra; When: Call to arrange an appointment; Reason: Recheck today's complaints. - Problem is new. - Symptoms are unchanged. Historical: - Allergies: no known allergies; - Home Meds: 1. clonazepam 0.5 mg Oral tab 3 times per day (Last dose: 04/25/2016 08:00) 2. lamotrigine 200 mg Oral tab once daily (Last dose: 04/25/2016 08:00) 3. trazodone 150 mg Oral tab 1 tab at bedtime (Last dose: 04/24/2016) 4. Motrin 800 mg Oral tab (Last dose: 04/25/2016 08:00) 5. amoxicillin 875 mg Oral tab every 12 hours (Last dose: 04/24/2016) - PMHx: Anger issues; Bipolar disorder; Anxiety; Asthma; - PSHx: none; - Social history: Smoking status: Patient uses tobacco products, current every day smoker. No barriers to communication noted, The patient speaks fluent Uzbek, Speaks appropriately for age. - Family history: Not pertinent. - : The pt / caregiver states he / she is not on anticoagulants. Home medication list is obtained from the patient. - Exposure Risk Screening:: None identified. Vital Signs: 04/25 09:58 BP 133 / 83; Pulse 86; Resp 18; Temp 96.9(O); Pulse Ox 96% on R/A; Weight 106.14 kg / elp 234 lbs (R); Height 5 ft. 8 in. (172.72 cm) (R); Pain 4/10; 13:45 BP 130 / 78; Pulse 82; Resp 18; Temp 98(O); Pulse Ox 98% on R/A; Pain 3/10; mcp 09:58 Body Mass Index 35.58 (106.14 kg, 172.72 cm) elp [place] Coma Score: 10:03 Eye Response: spontaneous(4). Verbal Response: oriented(5). Motor Response: obeys srm commands(6). Total: 15. Visual Acuity: 12:18 Left Eye Visual acuity 20/40, ; Right Eye Visual acuity 20/40, ; Both Eyes Visual kpj acuity 20/30; Without Lenses; MDM: 11:26 Financial registration complete. lg 11:33 [facility] Payment Agreement was scanned into [employer] and attached to record. lg 11:45 Visual Acuity ordered. ar2 11:45 Tetracaine (PF) Drops 0.5 % 2 drps Ophthalmic once ordered. ar2 11:45 Fluorescein Strip 1 strips Ophthalmic in right eye once ordered. ar2 11:46 CT Head Without Contrast Ordered. EDMS 11:46 CT Maxilofacial W/out Contrast Ordered. EDMS Administered Medications: 12:34 Drug: Tetracaine (PF) 2 drps [tetracaine HCl (PF) 0.5 % eye drops (2 drps)] {Note: wili given to MILA Molina for administration..} Route: Ophthalmic; Site: right eye; 12:34 Drug: Fluorescein 1 strips [fluorescein 1 mg eye strips (1 strips)] {Note: given to Lauren ZARAGOZA for administration..} Route: Ophthalmic; Site: right eye; Signatures: Dispatcher [employer] EDMS Anita Lauren RN RN kpj Michelson, Staci, RN RN srm Peters, Mary, RN RN mcp Ganter, LoriLee, Freedom Carmona lg, PA-C PA-C ar2 The chart was reviewed and I authenticate all verbal orders and agree with the evaluation and treatment provided.Attachments: 11:33 [facility] Payment Agreement lg MTDD
--- NOTE | 2016-04-27 14:47 | EDDOCDS ---
Physician Documentation [facility] Name: Efrain Marshall Age: 36 yrs Sex: Male : 1980 Arrival Date: 04/25/2016 Time: 09:55 Bed I10 Private MD: NO PRIMARY PHYSICIAN, . Disposition: 04/25/16 13:22 Discharged to Home/Self Care. Impression: Conjunctival hemorrhage, right eye - traumatic, Unspecified injury of head. - Condition is Stable. - Discharge Instructions: Head Injury, Adult, Subconjunctival Hemorrhage. - Prescriptions for tobramycin 0.3 % Ophthalmic drops - instill 1 drop by OPHTHALMIC route every 4 hours for 5 days; 1 bottle. - Medication Reconciliation, Local Pharmacy Hours form. - [facility]; When: Call to arrange an appointment; Reason: Recheck today's complaints, To establish care. Follow up: Homar Guerra; When: Call to arrange an appointment; Reason: Recheck today's complaints. - Problem is new. - Symptoms are unchanged. Historical: - Allergies: no known allergies; - Home Meds: 1. clonazepam 0.5 mg Oral tab 3 times per day (Last dose: 04/25/2016 08:00) 2. lamotrigine 200 mg Oral tab once daily (Last dose: 04/25/2016 08:00) 3. trazodone 150 mg Oral tab 1 tab at bedtime (Last dose: 04/24/2016) 4. Motrin 800 mg Oral tab (Last dose: 04/25/2016 08:00) 5. amoxicillin 875 mg Oral tab every 12 hours (Last dose: 04/24/2016) - PMHx: Anger issues; Bipolar disorder; Anxiety; Asthma; - PSHx: none; - Social history: Smoking status: Patient uses tobacco products, current every day smoker. No barriers to communication noted, The patient speaks fluent French, Speaks appropriately for age. - Family history: Not pertinent. - : The pt / caregiver states he / she is not on anticoagulants. Home medication list is obtained from the patient. - Exposure Risk Screening:: None identified. Vital Signs: 04/25 09:58 BP 133 / 83; Pulse 86; Resp 18; Temp 96.9(O); Pulse Ox 96% on R/A; Weight 106.14 kg / elp 234 lbs (R); Height 5 ft. 8 in. (172.72 cm) (R); Pain 4/10; 13:45 BP 130 / 78; Pulse 82; Resp 18; Temp 98(O); Pulse Ox 98% on R/A; Pain 3/10; mcp 09:58 Body Mass Index 35.58 (106.14 kg, 172.72 cm) elp [place] Coma Score: 10:03 Eye Response: spontaneous(4). Verbal Response: oriented(5). Motor Response: obeys srm commands(6). Total: 15. Visual Acuity: 12:18 Left Eye Visual acuity 20/40, ; Right Eye Visual acuity 20/40, ; Both Eyes Visual kpj acuity 20/30; Without Lenses; MDM: 11:26 Financial registration complete. lg 11:33 [facility] Payment Agreement was scanned into [employer] and attached to record. lg 11:45 Visual Acuity ordered. ar2 11:45 Tetracaine (PF) Drops 0.5 % 2 drps Ophthalmic once ordered. ar2 11:45 Fluorescein Strip 1 strips Ophthalmic in right eye once ordered. ar2 11:46 CT Head Without Contrast Ordered. EDMS 11:46 CT Maxilofacial W/out Contrast Ordered. EDMS 16:10 T-Sheet-- Draft Copy was scanned into [employer] and attached to record. klr 04/26 11:38 Radiology Report was scanned into [employer] and attached to record. gb Administered Medications: 04/25 12:34 Drug: Tetracaine (PF) 2 drps [tetracaine HCl (PF) 0.5 % eye drops (2 drps)] {Note: wili given to MILA Molina for administration..} Route: Ophthalmic; Site: right eye; 12:34 Drug: Fluorescein 1 strips [fluorescein 1 mg eye strips (1 strips)] {Note: given to Lauren ZARAGOZA for administration..} Route: Ophthalmic; Site: right eye; Signatures: Dispatcher [employer] EDMS Anita Lauren RN RN kpj Michelson, Staci, RN RN [facility] Eneida Griffin RN RN [facility] Christelle Driver, Reg Reg gb Deepthi Luu, Reg Reg Freedom Molina PA-C PA-C ar2 Redder, Kathie klr The chart was reviewed and I authenticate all verbal orders and agree with the evaluation and treatment provided.Attachments: 11:33 [facility] Payment Agreement lg 16:10 T-Sheet-- Draft Copy annie Chart Complete MTDD
--- NOTE | 2016-04-27 14:47 | EDDOCDS ---
Physician Documentation [facility] Name: Efrain Marshall Age: 36 yrs Sex: Male : 1980 Arrival Date: 04/25/2016 Time: 09:55 Bed I10 Private MD: NO PRIMARY PHYSICIAN, . Disposition: 04/25/16 13:22 Discharged to Home/Self Care. Impression: Conjunctival hemorrhage, right eye - traumatic, Unspecified injury of head. - Condition is Stable. - Discharge Instructions: Head Injury, Adult, Subconjunctival Hemorrhage. - Prescriptions for tobramycin 0.3 % Ophthalmic drops - instill 1 drop by OPHTHALMIC route every 4 hours for 5 days; 1 bottle. - Medication Reconciliation, Local Pharmacy Hours form. - [facility]; When: Call to arrange an appointment; Reason: Recheck today's complaints, To establish care. Follow up: Homar Guerra; When: Call to arrange an appointment; Reason: Recheck today's complaints. - Problem is new. - Symptoms are unchanged. Historical: - Allergies: no known allergies; - Home Meds: 1. clonazepam 0.5 mg Oral tab 3 times per day (Last dose: 04/25/2016 08:00) 2. lamotrigine 200 mg Oral tab once daily (Last dose: 04/25/2016 08:00) 3. trazodone 150 mg Oral tab 1 tab at bedtime (Last dose: 04/24/2016) 4. Motrin 800 mg Oral tab (Last dose: 04/25/2016 08:00) 5. amoxicillin 875 mg Oral tab every 12 hours (Last dose: 04/24/2016) - PMHx: Anger issues; Bipolar disorder; Anxiety; Asthma; - PSHx: none; - Social history: Smoking status: Patient uses tobacco products, current every day smoker. No barriers to communication noted, The patient speaks fluent Lao, Speaks appropriately for age. - Family history: Not pertinent. - : The pt / caregiver states he / she is not on anticoagulants. Home medication list is obtained from the patient. - Exposure Risk Screening:: None identified. Vital Signs: 04/25 09:58 BP 133 / 83; Pulse 86; Resp 18; Temp 96.9(O); Pulse Ox 96% on R/A; Weight 106.14 kg / elp 234 lbs (R); Height 5 ft. 8 in. (172.72 cm) (R); Pain 4/10; 13:45 BP 130 / 78; Pulse 82; Resp 18; Temp 98(O); Pulse Ox 98% on R/A; Pain 3/10; mcp 09:58 Body Mass Index 35.58 (106.14 kg, 172.72 cm) elp [place] Coma Score: 10:03 Eye Response: spontaneous(4). Verbal Response: oriented(5). Motor Response: obeys srm commands(6). Total: 15. Visual Acuity: 12:18 Left Eye Visual acuity 20/40, ; Right Eye Visual acuity 20/40, ; Both Eyes Visual kpj acuity 20/30; Without Lenses; MDM: 11:26 Financial registration complete. lg 11:33 [facility] Payment Agreement was scanned into [employer] and attached to record. lg 11:45 Visual Acuity ordered. ar2 11:45 Tetracaine (PF) Drops 0.5 % 2 drps Ophthalmic once ordered. ar2 11:45 Fluorescein Strip 1 strips Ophthalmic in right eye once ordered. ar2 11:46 CT Head Without Contrast Ordered. EDMS 11:46 CT Maxilofacial W/out Contrast Ordered. EDMS 16:10 T-Sheet-- Draft Copy was scanned into [employer] and attached to record. klr 04/26 11:38 Radiology Report was scanned into [employer] and attached to record. gb Administered Medications: 04/25 12:34 Drug: Tetracaine (PF) 2 drps [tetracaine HCl (PF) 0.5 % eye drops (2 drps)] {Note: wili given to MILA Molina for administration..} Route: Ophthalmic; Site: right eye; 12:34 Drug: Fluorescein 1 strips [fluorescein 1 mg eye strips (1 strips)] {Note: given to Lauren ZARAGOZA for administration..} Route: Ophthalmic; Site: right eye; Signatures: Dispatcher [employer] EDMS Anita Lauren RN RN kpj Michelson, Staci, RN RN [facility] Eneida Griffin RN RN [facility] Christelle Driver, Reg Reg gb Deepthi Luu, Reg Reg Freedom Molina PA-C PA-C ar2 Redder, Kathie klr The chart was reviewed and I authenticate all verbal orders and agree with the evaluation and treatment provided.Attachments: 11:33 [facility] Payment Agreement lg 16:10 T-Sheet-- Draft Copy annie Chart Complete MTDD
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
== END 2016-04-25 13:46 | disposition home or self-care (01) ==
LOC: M ED 09:55
DX: H11.32 Conjunctival hemorrhage, left eye (principal); S09.90XA Unspecified injury of head, initial encounter; Y04.0XXA Assault by unarmed brawl or fight, initial encounter; Y92.019 Unspecified place in single-family (private) house as the place of occurrence of the external cause; Y93.89 Activity, other specified; Y99.8 Other external cause status; F31.9 Bipolar disorder, unspecified; J45.909 Unspecified asthma, uncomplicated; F17.210 Nicotine dependence, cigarettes, uncomplicated; Z79.899 Other long term (current) drug therapy

== ENCOUNTER 2016-10-16 11:30 | Emergency (ER) | payer MEDICARE, MEDICAID ==
[~2016-10-16] VITALS: Ht 172.7 cm; Wt 104.5 kg
[2016-10-16] MEDS ORDERED: NORCOTAB PO (12:17)
[2016-10-16] MEDS ORDERED: NAPR500T3 PO (12:17)
--- NOTE | 2016-10-16 12:41 | REP ---
Left knee six views : Comparison is 09/18/2016. There is no fracture or dislocation. Mineralization and joint spaces are normal. There are no calcifications or foreign bodies. Impression: Negative left knee . There is no interval change. Signed by Orville Cheng MD 10/16/2016 12:32 P
[2016-10-16 13:05] VITALS: BP 126/78
== END 2016-10-16 13:04 | disposition home or self-care (01) ==
LOC: M ED 11:30
DX: S83.411A Sprain of medial collateral ligament of right knee, initial encounter (principal); F17.210 Nicotine dependence, cigarettes, uncomplicated; W03.XXXA Other fall on same level due to collision with another person, initial encounter; Y92.830 Public park as the place of occurrence of the external cause; Y99.9 Unspecified external cause status; Y93.61 Activity, american tackle football

== ENCOUNTER 2017-02-19 03:56 | Emergency (ER) | payer MEDICARE, MEDICAID ==
[~2017-02-19] VITALS: Ht 172.7 cm; Wt 104.5 kg
[~2017-02-19 03:56] MED LIST changes: +NAPR500T3 PO; +NORCOTAB PO
[2017-02-19] MEDS ORDERED: KLON1TAB PO (04:08)
[2017-02-19] MEDS ORDERED: LAMI1TAB7 PO (04:08)
[2017-02-19] MEDS ORDERED: SERO1TAB3 PO (04:08)
[2017-02-19 06:20] VITALS: BP 120/77
== END 2017-02-19 06:27 | disposition left against medical advice (07) ==
LOC: M ED 03:56
DX: Z53.29 Procedure and treatment not carried out because of patient's decision for other reasons (principal)

== ENCOUNTER 2017-05-02 18:04 | Emergency (ER) | payer MEDICARE, MEDICAID | END 2017-05-02 22:55 | disposition home or self-care (01) | LOC: M ED 18:04 | DX: M25.532 Pain in left wrist (principal); F43.10 Post-traumatic stress disorder, unspecified; Z79.899 Other long term (current) drug therapy; F17.210 Nicotine dependence, cigarettes, uncomplicated | CPT/HCPCS: 73130 ==

== ENCOUNTER 2017-05-04 23:38 | Emergency (ER) | payer MEDICARE, MEDICAID ==
[2017-05-05 00:52] LABS: ANION GAP 10 MEQ/L (8-16); BLOOD UREA NITROGEN 11 MG/DL (7-18); CALCIUM LEVEL 8.6 MG/DL (8.5-10.1); CARBON DIOXIDE LEVEL 25 MEQ/L (21-32); CHLORIDE LEVEL 107 MEQ/L (98-107); CREATININE FOR GFR 1.14 MG/DL (0.70-1.30); ETHYL ALCOHOL (ETHANOL) 0.105 % (0.000-0.010); GLOMERULAR FILTRATION RATE > 60.0 (>60); GLUCOSE, FASTING 125 MG/DL (70-100); POTASSIUM SERUM 3.4 MEQ/L (3.5-5.1); SODIUM LEVEL 142 MEQ/L (136-145)
== END 2017-05-05 02:48 | disposition home or self-care (01) ==
LOC: M ED 23:38
DX: F10.220 Alcohol dependence with intoxication, uncomplicated (principal); F12.220 Cannabis dependence with intoxication, uncomplicated; J45.909 Unspecified asthma, uncomplicated; Z79.899 Other long term (current) drug therapy
CPT/HCPCS: 70450

== ENCOUNTER 2017-05-20 16:19 | Emergency (ER) | payer MEDICARE, MEDICAID ==
[2017-05-20] MEDS: diphenhydrAMINE INJ 50MG/ML VIAL (J1200) IV (17:15)
[2017-05-20] MEDS: METOCLOPRAMIDE INJ 10MG/2ML VIAL (J2765) IV (17:15)
[2017-05-20] MEDS: KETOROLAC 30 MG/ML VIAL (J1885) IV (17:15)
[2017-05-20 17:22] LABS: BASO # 0.1 10^3/uL (0.0-0.2); BASO % 0.6 % (0.0-1.0); EOS # 0.3 10^3/uL (0.0-0.50); EOS % 2.9 % (0.0-3.0); HEMATOCRIT 42.5 % (42.0-52.0); HEMOGLOBIN 14.7 g/dl (14.0-18.0); IMMATURE GRANULOCYTE % 0.4 % (0-3.0); LYMPH # 2.1 10^3/uL (1.5-4.5); MEAN CORPUSCULAR HEMOGLOBIN 27.9 pg (27.0-33.0); MEAN CORPUSCULAR HGB CONC 34.6 g/dl (32.0-36.5); MEAN CORPUSCULAR VOLUME 80.8 fl (80.0-96.0); MONO # 1.2 10^3/uL (0.0-0.8); MONO % 12.2 % (0.0-5.0); NEUTROPHILS # 6.4 10^3/uL (1.8-7.7); NEUTROPHILS % 62.9 % (36.0-66.0); PLATELET COUNT, AUTOMATED 269 10^3/uL (150-450); RED BLOOD COUNT 5.26 10^6/uL (4.30-6.10); WHITE BLOOD COUNT 10.1 10^3/uL (4.0-10.0)
[2017-05-20 18:23] LABS: ERYTHROCYTE SEDIMENTATION RATE 11 mm/hr (0-15)
[2017-05-20] MEDS: NS 1,000 ML IV (18:35)
[2017-05-20] MEDS: NORCO, ANEXSIA 5/325MG TABLET (HYDROcodone/ACETAMINOPHEN) PO (18:35)
== END 2017-05-20 19:25 | disposition home or self-care (01) ==
LOC: M ED 16:19
DX: R51 Headache (principal); J45.909 Unspecified asthma, uncomplicated; Z79.899 Other long term (current) drug therapy
CPT/HCPCS: J1200

== ENCOUNTER 2017-05-21 01:04 | Emergency (ER) | payer MEDICARE, MEDICAID ==
[2017-05-21 02:39] LABS: BASO # 0.1 10^3/uL (0.0-0.2); BASO % 0.9 % (0.0-1.0); EOS # 0.4 10^3/uL (0.0-0.50); EOS % 3.6 % (0.0-3.0); HEMATOCRIT 43.9 % (42.0-52.0); HEMOGLOBIN 14.9 g/dl (14.0-18.0); IMMATURE GRANULOCYTE % 0.4 % (0-3.0); LYMPH # 3.4 10^3/uL (1.5-4.5); MEAN CORPUSCULAR HEMOGLOBIN 27.7 pg (27.0-33.0); MEAN CORPUSCULAR HGB CONC 33.9 g/dl (32.0-36.5); MEAN CORPUSCULAR VOLUME 81.8 fl (80.0-96.0); MONO # 1.5 10^3/uL (0.0-0.8); MONO % 12.6 % (0.0-5.0); NEUTROPHILS # 6.3 10^3/uL (1.8-7.7); NEUTROPHILS % 53.5 % (36.0-66.0); PLATELET COUNT, AUTOMATED 294 10^3/uL (150-450); RED BLOOD COUNT 5.37 10^6/uL (4.30-6.10); RED CELL DISTRIBUTION WIDTH 12.9 % (11.5-14.5); WHITE BLOOD COUNT 11.8 10^3/uL (4.0-10.0)
[2017-05-21 02:42] LABS: CARBOXYHEMOGLOBIN 2.2 % (0.0-1.5)
[2017-05-21] MEDS ORDERED: HYDROmorphone HCL 1 MG/ML SYRINGE (J1170) As Ordered (03:00)
[2017-05-21] MEDS: HYDROmorphone HCL 1 MG/ML SYRINGE (J1170) IV ×2 (03:02→03:14)
[2017-05-21 03:07] LABS: ANION GAP 7 MEQ/L (8-16); BLOOD UREA NITROGEN 14 MG/DL (7-18); CALCIUM LEVEL 8.9 MG/DL (8.5-10.1); CARBON DIOXIDE LEVEL 27 MEQ/L (21-32); CHLORIDE LEVEL 107 MEQ/L (98-107); GLOMERULAR FILTRATION RATE > 60.0 (>60); GLUCOSE, FASTING 86 MG/DL (70-100); SODIUM LEVEL 141 MEQ/L (136-145)
[2017-05-21 03:47] LABS: APPEARANCE, CSF CLEAR (CLEAR); COLOR, CSF COLORLESS (COLORLESS); CSF DIFF IF INDICATED? NO (NO); CSF RBC < 2 10^3/uL (<2); CSF WBC 2 /uL (0-10)
[2017-05-21 03:48] LABS: CSF RBC < 2 10^3/uL (<2); CSF TUBE# CELL CNT TUBE 1
[2017-05-21 03:49] LABS: APPEARANCE, CSF CLEAR (CLEAR); COLOR, CSF COLORLESS (COLORLESS); CSF DIFF IF INDICATED? NO (NO); CSF TUBE# CELL CNT TUBE 4; CSF WBC 1 /uL (0-10)
[2017-05-21 03:57] LABS: GLUCOSE CSF 63 MG/DL (40-75); TOTAL PROTEIN,CSF 23.3 MG/DL (15-45)
[2017-05-21 04:02] LABS: CSF TUBE# GLU TUBE 3; CSF TUBE# TP TUBE 3
[2017-05-21] MEDS: NORCO 5/325MG TABLET (BULK FOR ED) PO (04:30)
== END 2017-05-21 04:48 | disposition home or self-care (01) ==
LOC: M ED 01:04
DX: R51 Headache (principal); J45.909 Unspecified asthma, uncomplicated; Z79.899 Other long term (current) drug therapy; F17.210 Nicotine dependence, cigarettes, uncomplicated
CPT/HCPCS: J1170

== ENCOUNTER 2017-09-04 20:07 | Emergency (ER) | payer MEDICARE, MEDICAID | END 2017-09-04 22:08 | disposition left against medical advice (07) | LOC: M ED 20:07 | DX: Z53.21 Procedure and treatment not carried out due to patient leaving prior to being seen by health care provider (principal) ==

== ENCOUNTER 2017-12-19 14:25 | Emergency (ER) | payer MEDICARE, MEDICAID ==
[2017-12-19] MEDS: MORPHINE 2 MG/ML 1ML SYRINGE (J2270) IV (16:50)
[2017-12-19] MEDS: CLINDAMYCIN 900 MG in APPROPRIATE DILUENT 1 EA IV (16:50)
[2017-12-19] MEDS: KETOROLAC 30 MG/ML VIAL (J1885) IV (16:50)
[2017-12-19 17:05] LABS: BASO # 0.1 10^3/uL (0.0-0.2); BASO % 0.6 % (0.0-1.0); EOS # 0.3 10^3/uL (0.0-0.50); EOS % 3.9 % (0.0-3.0); HEMATOCRIT 46.4 % (42.0-52.0); HEMOGLOBIN 15.4 g/dl (13.5-17.5); IMMATURE GRANULOCYTE % 0.2 % (0-3.0); LYMPH # 2.4 10^3/uL (1.5-4.5); LYMPH % 27.9 % (24.0-44.0); MEAN CORPUSCULAR HEMOGLOBIN 27.5 pg (27.0-33.0); MEAN CORPUSCULAR HGB CONC 33.2 g/dl (32.0-36.5); MEAN CORPUSCULAR VOLUME 82.9 fl (80.0-96.0); NEUTROPHILS # 4.7 10^3/uL (1.8-7.7); NEUTROPHILS % 55.4 % (36.0-66.0); PLATELET COUNT, AUTOMATED 296 10^3/uL (150-450); RED CELL DISTRIBUTION WIDTH 13.1 % (11.5-14.5); WHITE BLOOD COUNT 8.5 10^3/uL (4.0-10.0)
[2017-12-19 17:38] LABS: ANION GAP 8 MEQ/L (8-16); BLOOD UREA NITROGEN 11 MG/DL (7-18); C REACTIVE PROTEIN QUANTITATIV 0.38 MG/DL (0.00-0.30); CALCIUM LEVEL 9.2 MG/DL (8.5-10.1); CARBON DIOXIDE LEVEL 26 MEQ/L (21-32); CHLORIDE LEVEL 106 MEQ/L (98-107); CREATININE FOR GFR 1.13 MG/DL (0.70-1.30); GLOMERULAR FILTRATION RATE > 60.0 (>60); GLUCOSE, FASTING 76 MG/DL (70-100); POTASSIUM SERUM 4.3 MEQ/L (3.5-5.1); SODIUM LEVEL 140 MEQ/L (136-145)
[2017-12-19 17:41] LABS: ERYTHROCYTE SEDIMENTATION RATE 3 mm/hr (0-15)
[2017-12-19] MEDS ORDERED: ISOVUE-370 76% 100ML VIAL (Q9967) As Ordered (17:43)
[2017-12-19] MEDS: LIDOCAINE VISCOUS 2% SOLN 15ML UDC MT (18:31)
== END 2017-12-19 19:08 | disposition home or self-care (01) ==
LOC: M ED 14:25
DX: R51 Headache (principal); K08.89 Other specified disorders of teeth and supporting structures; F43.10 Post-traumatic stress disorder, unspecified; F41.9 Anxiety disorder, unspecified; F17.200 Nicotine dependence, unspecified, uncomplicated
CPT/HCPCS: Q9967

== ENCOUNTER 2018-05-19 14:41 | Emergency (ER) | payer MEDICAID, MEDICARE ==
[~2018-05-19] VITALS: Ht 172.7 cm; Wt 104.5 kg
[~2018-05-19 14:41] MED LIST changes: -/CELE20CA PO; +CELE1CAP4 PO; +CLEO300C2 PO; -DOCU10ELUD PO; +DOCU5LIQ PO; +HYDR-3715 PO; +IBUP-1022 PO; +KETO10TAB PO; +KLON1TAB PO; +LAMI1TAB7 PO; +NAPR-885 PO; -NAPR500T3 PO; -NORCOTAB PO; +OXYC-517 PO; -OXYCO5TA PO; +REGL10TA6 PO; +SERO1TAB3 PO; +SUDA30TA8 PO; +TOPA100T12 PO; +TOPA50TA8 PO
[2018-05-19 15:34] LABS: BILIRUBIN, URINE MANUAL NEGATIVE (NEGATIVE); GLUCOSE, URINE (UA) MANUAL NEGATIVE (NEGATIVE); KETONE, URINE MANUAL NEGATIVE (NEGATIVE); UROBILINOGEN, URINE MANUAL NORMAL (NORMAL)
[2018-05-19 15:37] LABS: BASO # 0.1 10^3/uL (0.0-0.2); BASO % 0.7 % (0.0-1.0); EOS # 0.4 10^3/uL (0.0-0.50); EOS % 4.1 % (0.0-3.0); HEMATOCRIT 44.7 % (42.0-52.0); HEMOGLOBIN 14.9 g/dl (13.5-17.5); LYMPH # 2.2 10^3/uL (1.5-4.5); LYMPH % 24.8 % (24.0-44.0); MEAN CORPUSCULAR HEMOGLOBIN 27.5 pg (27.0-33.0); MEAN CORPUSCULAR HGB CONC 33.3 g/dl (32.0-36.5); MEAN CORPUSCULAR VOLUME 82.5 fl (80.0-96.0); MONO # 0.9 10^3/uL (0.0-0.8); MONO % 10.2 % (0.0-5.0); NEUTROPHILS # 5.2 10^3/uL (1.8-7.7); NEUTROPHILS % 59.6 % (36.0-66.0); PLATELET COUNT, AUTOMATED 265 10^3/uL (150-450); RED BLOOD COUNT 5.42 10^6/uL (4.30-6.10); WHITE BLOOD COUNT 8.7 10^3/uL (4.0-10.0)
[2018-05-19 15:37] LABS: BACTERIA, URINE NONE SEEN; MUCUS, URINE SMALL AMOUNT (NEGATIVE); RBC, URINE TNTC /hpf (0-3); SQUAMOUS EPITHELIAL CELL URINE NONE SEEN /hpf (SMALL AMT)
[2018-05-19 15:38] LABS: HYALINE CAST, URINE NONE SEEN /lpf (0-1)
--- NOTE | 2018-05-19 16:00 | REP ---
CT of the abdomen pelvis without IV and oral contrast for renal colic: Comparison is 08/07/2012. There are no renal, ureteral or bladder calculi. There is no hydronephrosis. The visualized lung greenberg are clear. The unenhanced hepatic parenchyma, gallbladder, pancreas, spleen, adrenals and abdominal aorta are unremarkable. There is no bowel distension or obstruction. The mesentery is unremarkable. Pelvis: The appendix and terminal ileum are unremarkable. There is no ascites. There is no adenopathy or mass. There is no retroperitoneal or mesenteric adenopathy or mass. Impression: Essentially negative CT of the abdomen and pelvis. There are no renal collecting system calculi. There is no hydronephrosis. Electronically Signed by Orville Cheng MD 05/19/2018 03:51 P
[2018-05-19 16:03] LABS: ALBUMIN 3.5 GM/DL (3.2-5.2); ALT/SGPT 30 U/L (12-78); BILIRUBIN,DIRECT 0.1 MG/DL (0.0-0.2); BILIRUBIN,TOTAL 0.5 MG/DL (0.2-1.0); BLOOD UREA NITROGEN 14 MG/DL (7-18); CALCIUM LEVEL 8.3 MG/DL (8.5-10.1); CARBON DIOXIDE LEVEL 26 MEQ/L (21-32); CHLORIDE LEVEL 106 MEQ/L (98-107); CREATININE FOR GFR 1.23 MG/DL (0.70-1.30); GLOMERULAR FILTRATION RATE > 60.0 (>60); GLUCOSE, FASTING 94 MG/DL (70-100); LIPASE 107 U/L (73-393); SODIUM LEVEL 141 MEQ/L (136-145); TOTAL PROTEIN 7.1 GM/DL (6.4-8.2)
[2018-05-19] MEDS ORDERED: CIPR-249 PO (16:09)
[2018-05-19 16:20] VITALS: BP 117/62
[2018-05-20 10:57] LABS: CHLAMYDIA DNA AMPLIFICATION NEGATIVE (NEGATIVE); GC DNA AMPLIFICATION NEGATIVE (NEGATIVE)
== END 2018-05-19 16:24 | disposition home or self-care (01) ==
LOC: M ED 14:41
DX: N30.91 Cystitis, unspecified with hematuria (principal); K21.9 Gastro-esophageal reflux disease without esophagitis; F17.210 Nicotine dependence, cigarettes, uncomplicated

== ENCOUNTER 2019-01-09 10:27 | Emergency (ER) | payer OTHER ==
[~2019-01-09] VITALS: Ht 172.7 cm; Wt 112.6 kg
[2019-01-09 10:27] VITALS: BP 133/78
[~2019-01-09 10:27] MED LIST changes: +ALPR1TAB3 PO; +CIPR-249 PO; +MEDR4PAK PO; +QUET5TAB PO; +ZITH250T PO
[2019-01-09] MEDS ORDERED: HYDR-3363 (10:42)
[2019-01-09] MEDS ORDERED: LAMO100T (10:42)
[2019-01-09] MEDS ORDERED: IBUPROFEN 800 MG TAB PO ONE (11:00)
== END 2019-01-09 11:08 | disposition home or self-care (01) ==
LOC: M ED 10:27
DX: S56.911A Strain of unspecified muscles, fascia and tendons at forearm level, right arm, initial encounter (principal); X58.XXXA Exposure to other specified factors, initial encounter; Y92.018 Other place in single-family (private) house as the place of occurrence of the external cause; Z79.899 Other long term (current) drug therapy

== ENCOUNTER 2020-01-12 14:14 | Emergency (ER) | payer OTHER ==
[~2020-01-12] VITALS: Ht 172.7 cm; Wt 112.4 kg
[~2020-01-12 14:14] MED LIST changes: +HYDR-3363; +LAMO100T3
[2020-01-12 14:16] VITALS: BP 141/86
--- NOTE | 2020-01-12 15:07 | REPVR ---
PROCEDURE INFORMATION: Exam: XR Chest, 2 Views Exam date and time: 01/12/2020 2:59 PM Age: 39 years old Clinical indication: Injury or trauma; Other: Lifting injury; Sprain or strain; Additional info: Left posterior chest wall/scapular pain; Lifting injury TECHNIQUE: Imaging protocol: XR of the chest Views: 2 views. COMPARISON: No relevant prior studies available. FINDINGS: Lungs: Unremarkable. No consolidation. Pleural space: Unremarkable. No pleural effusion. No pneumothorax. Heart/Mediastinum: Unremarkable. No cardiomegaly. Bones/joints: Unremarkable. IMPRESSION: No evidence for acute pulmonary disease. Electronically signed by: Jameson Gomez On 01/12/2020 15:07:32 PM
[2020-01-12] MEDS ORDERED: ROBA750T4 PO (15:32)
== END 2020-01-12 15:48 | disposition home or self-care (01) ==
LOC: M ED 14:14
DX: M54.9 Dorsalgia, unspecified (principal); F43.10 Post-traumatic stress disorder, unspecified; Z79.899 Other long term (current) drug therapy

== ENCOUNTER 2020-05-15 05:57 | Emergency (ER) | payer OTHER ==
[~2020-05-15] VITALS: Ht 172.7 cm; Wt 113.6 kg
[~2020-05-15 05:57] MED LIST changes: +QUET50TA3 PO; -QUET5TAB PO; +ROBA750T4 PO
[2020-05-15 05:58] VITALS: BP 135/90
--- OUTSIDE RECORDS SUMMARY | 2020-05-15 06:04 | CCD ---
Author Author [facility] Organization [facility] Address Unknown Phone Unavailable Care Team Providers Care Senior Air Director Name Role Phone Alda Mast MD Unavailable Unavailable Alda Mast MD Unavailable Unavailable Alda Mast MD Unavailable Unavailable Alda Mast MD Unavailable Unavailable Alda Mast MD Unavailable Unavailable Alda Mast MD Unavailable Unavailable Alda Mast MD Unavailable Unavailable Alda Mast MD Unavailable Unavailable Alda Mast MD Unavailable Unavailable Alda Mast MD Unavailable Unavailable Alda Mast MD Unavailable Unavailable Alda Mast MD Unavailable Unavailable Alda Mast MD Unavailable Unavailable Alda Mast MD Unavailable Unavailable Alda Mast MD Unavailable Unavailable Alda Mast MD Unavailable Unavailable Alda Mast MD Unavailable Unavailable Alda Mast MD Unavailable Unavailable Alda Mast MD Unavailable Unavailable Alda Mast MD Unavailable Unavailable Alda Mast MD Unavailable Unavailable Alda Mast MD Unavailable Unavailable Alda Mast MD Unavailable Unavailable Alda Mast MD Unavailable Unavailable Alda Mast MD Unavailable Unavailable Alda Mast MD Unavailable Unavailable Alda Mast MD Unavailable Unavailable Alda Mast MD Unavailable Unavailable Alda Mast MD Unavailable Unavailable Alda Mast MD Unavailable Unavailable Alda Mast MD Unavailable Unavailable Alda Mast MD Unavailable Unavailable Alda Mast MD Unavailable Unavailable Alda Mast MD Unavailable Unavailable Mast, Alda Reyes MD Unavailable Unavailable Mast, Alda Reyes MD Unavailable Unavailable Mast, Alda Reyes MD Unavailable Unavailable Mast, Alda Reyes MD Unavailable Unavailable Mast, Alda Reyes MD Unavailable Unavailable Mast, Alda Reyes MD Unavailable Unavailable Mast, Alda Reyes MD Unavailable Unavailable Mast, Alda Reyes MD Unavailable Unavailable Mast, Alda Reyes MD Unavailable Unavailable Mast, Alda Reyes MD Unavailable Unavailable Mast, Alda Reyes MD Unavailable Unavailable Mast, Alda Reyes MD Unavailable Unavailable Mast, Alda Reyes MD Unavailable Unavailable Mast, Alda Reyes MD Unavailable Unavailable Mast, Alda Reyes MD Unavailable Unavailable Mast, Alda Reyes MD Unavailable Unavailable Mast, Alda Reyes MD Unavailable Unavailable Mast, Alda Reyes MD Unavailable Unavailable Mast, Alda Reyes MD Unavailable Unavailable Mast, Alda Reyes MD Unavailable Unavailable Mast, Alda Reyes MD Unavailable Unavailable Mast, Alda Reyes MD Unavailable Unavailable Mast, Alda Reyes MD Unavailable Unavailable Mast, Alda Reyes MD Unavailable Unavailable Mast, Alda Reyes MD Unavailable Unavailable Mast, Alda Reyes MD Unavailable Unavailable Mast, Alda Reyes MD Unavailable Unavailable Mast, Alda Reyes MD Unavailable Unavailable Mast, Alda Reyes MD Unavailable Unavailable Mast, Alda Reyes MD Unavailable Unavailable Mast, Alda Reyes MD Unavailable Unavailable Mast, Alda Reyes MD Unavailable Unavailable Mast, Alda Reyes MD Unavailable Unavailable Mast, Alda Reyes MD Unavailable Unavailable Mast, Alda Reyes MD Unavailable Unavailable Mast, Alda Reyes MD Unavailable Unavailable Mast, Alda Reyes MD Unavailable Unavailable Mast, Alda Reyes MD Unavailable Unavailable Mast, Alda Reyes MD Unavailable Unavailable Mast, Alda Reyes MD Unavailable Unavailable Mast, Alda Reyes MD Unavailable Unavailable Mast, Alda Reyes MD Unavailable Unavailable Mast, Alda Reyes MD Unavailable Unavailable Mast, Alda Reyes MD Unavailable Unavailable Mast, Alda Reyes MD Unavailable Unavailable Mast, Alda Reyes MD Unavailable Unavailable Mast, Alda Reyes MD Unavailable Unavailable Mast, Alda Reyes MD Unavailable Unavailable Mast, Alda Reyes MD Unavailable Unavailable Mast, Alda Reyes MD Unavailable Unavailable Mast, Alda Reyes MD Unavailable Unavailable Mast, Alda Reyes MD Unavailable Unavailable Mast, Alda Reyes MD Unavailable Unavailable Mast, Alda Reyes MD Unavailable Unavailable Mast, Alda Reyes MD Unavailable Unavailable Re-disclosure Warning The records that you are about to access may contain information from federally-assisted alcohol or drug abuse programs. If such information is present, then the following federally mandated warning applies: This information has been disclosed to you from records protected by federal confidentiality rules (42 CFR part 2). The federal rules prohibit you from making any further disclosure of this information unless further disclosure is expressly permitted by the written consent of the person to whom it pertains or as otherwise permitted by 42 CFR part 2. A general authorization for the release of medical or other information is NOT sufficient for this purpose. The Federal rules restrict any use of the information to criminally investigate or prosecute any alcohol or drug abuse patient.The records that you are about to access may contain highly sensitive health information, the redisclosure of which is protected by Article 27-F of the [facility] Public Health law. If you continue you may have access to information: Regarding HIV / AIDS; Provided by facilities licensed or operated by the [facility] Office of Mental Health; or Provided by the [facility] Office for People With Developmental Disabilities. If such information is present, then the following [facility] mandated warning applies: This information has been disclosed to you from confidential records which are protected by state law. State law prohibits you from making any further disclosure of this information without the specific written consent of the person to whom it pertains, or as otherwise permitted by law. Any unauthorized further disclosure in violation of state law may result in a fine or long-term sentence or both. A general authorization for the release of medical or other information is NOT sufficient authorization for further disc losure. Family History Family Member Name Family Member Gender Family Member Status Date o f Status Description Data Source(s) Unknown Female Problem [facility] ([facility]) Unknown Female Problem [facility] ([facility]) Encounters Encounter Providers Location Date Indications Data Source(s ) Outpatient Attender: Eric WALDRON 09/02/2019 07:50:50 PM EDT [facility] Medications Medication Brand Name Start Date Product Form Dose Route Admi nistrative Instructions Pharmacy Instructions Status Indications Reaction Description Data Source(s) 50 mg 05/06/2020 12:00:00 AM EST capsule 30 TAKE ONE CAPSULE BY MOUTH EVERY MORNING MAXIMUM DAILY DOSE = 1 CAPSULE TAKE ONE CAPSULE BY MOUTH EVERY MORNING MAXIMUM DAILY DOSE = 1 CAPSULE SOLD: 05/06/2020 [facility] 1 mg 05/06/2020 12:00:00 AM EST tablet 120 TAKE ONE TABLET BY MOUTH FOUR TIMES A DAY MAXIMUM DAILY DOSE = 4 TABLETS TAKE ONE TABLET BY MOUTH FOUR TIMES A DAY MAXIMUM DAILY DOSE = 4 TABLETS SOLD: 05/06/2020 [facility] 100 mg 05/06/2020 12:00:00 AM EST tablet 30 TAKE ONE TABLET BY MOUTH EVERY DAY TAKE ONE TABLET BY MOUTH EVERY DAY SOLD: 05/06/2020 [facility] quetiapine 50 MG Oral Tablet QUETIAPINE FUMARATE 05/06/2020 12:0 0:00 AM EST tablet 30 TAKE ONE TABLET BY MOUTH EVERY D AY AT BEDTIME TAKE ONE TABLET BY MOUTH EVERY DAY AT BEDTIME SOLD: 05/06/2020 [facility] 1 mg 04/06/2020 12:00:00 AM EST tablet 120 TAKE ONE TABLET BY MOUTH FOUR TIMES A DAY MAXIMUM DAILY DOSE = 4 TAKE ONE TABLET BY MOUTH FOUR TIMES A DA Y MAXIMUM DAILY DOSE = 4 SOLD: 04/06/2020 [facility] 50 mg 04/06/2020 12:00:00 AM EST capsule 30 TAKE ONE CAPSULE BY MOUTH EVERY DAY IN THE MORNING MAXIMUM DAILY DOSE = 1 TAKE ONE CAPSULE BY MOUTH EVERY DAY IN THE MORNING MAXIMUM DAILY DOSE = 1 SOLD: 04/06/2020 [facility] quetiapine 50 MG Oral Tablet QUETIAPINE FUMARATE 04/06/2020 12:0 0:00 AM EST tablet 30 TAKE ONE TABLET BY MOUTH EVERY D AY AT BEDTIME TAKE ONE TABLET BY MOUTH EVERY DAY AT BEDTIME SOLD: 04/06/2020 [facility] 1 mg 03/06/2020 12:00:00 AM EST tablet 120 TAKE ONE TABLET BY MOUTH FOUR TIMES A DAY MAXIMUM DAILY DOSE = 4 TABLETS TAKE ONE TABLET BY MOUTH FOUR TIMES A DAY MAXIMUM DAILY DOSE = 4 TABLETS SOLD: 03/06/2020 [facility] 50 mg 03/06/2020 12:00:00 AM EST capsule 30 TAKE ONE CAPSULE BY MOUTH EVERY DAY IN THE MORNING MAXIMUM DAILY DOSE = 1 TAKE ONE CAPSULE BY MOUTH EVERY DAY IN THE MORNING MAXIMUM DAILY DOSE = 1 SOLD: 03/06/2020 [facility] 50 mg 02/06/2020 12:00:00 AM EST capsule 30 TAKE ONE CAPSULE BY MOUTH EVERY MORNING MAXIMUM DAILY DOSE = 1 TAKE ONE CAPSULE BY MOUTH EVERY MORNING MAXIMUM DAILY DOSE = 1 SOLD: 02/06/[address] [facility] 1 mg 02/06/2020 12:00:00 AM EST tablet 120 TAKE ONE TABLET BY MOUTH FOUR TIMES A DAY MAXIMUM DAILY DOSE = 4 TAKE ONE TABLET BY MOUTH FOUR TIMES A DA Y MAXIMUM DAILY DOSE = 4 SOLD: 02/06/2020 [facility] 750 mg 01/12/2020 12:00:00 AM EDT tablet 30 TAKE ONE TABLET BY MOUTH THREE TIMES A DAY MAXIMUM DAILY DOSE = 3 TAKE ONE TABLET BY MOUTH THREE TIMES A D AY MAXIMUM DAILY DOSE = 3 SOLD: 01/12/2020 [facility] 1 mg 01/08/2020 12:00:00 AM EDT tablet 120 TAKE ONE TABLET BY MOUTH FOUR TIMES A DAY MAXIMUM DAILY DOSE = 4 TABLETS TAKE ONE TABLET BY MOUTH FOUR TIMES A DAY MAXIMUM DAILY DOSE = 4 TABLETS SOLD: 01/08/2020 [facility] 50 mg 01/08/2020 12:00:00 AM EDT capsule 30 TAKE ONE CAPSULE BY MOUTH EVERY MORNING MAXIMUM DAILY DOSE = 1 CAPSULE TAKE ONE CAPSULE BY MOUTH EVERY MORNING MAXIMUM DAILY DOSE = 1 CAPSULE SOLD: 01/08/2020 [facility] 50 mg 12/10/2019 12:00:00 AM EDT capsule 30 TAKE ONE CAPSULE BY MOUTH EVERY DAY IN THE MORNING MAXIMUM DAILY DOSE = 1 TAKE ONE CAPSULE BY MOUTH EVERY DAY IN THE MORNING MAXIMUM DAILY DOSE = 1 SOLD: 12/10/2019 [facility] 1 mg 12/10/2019 12:00:00 AM EDT tablet 120 TAKE ONE TABLET BY MOUTH FOUR TIMES A DAY MAXIMUM DAILY DOSE = 4 TAKE ONE TABLET BY MOUTH FOUR TIMES A DA Y MAXIMUM DAILY DOSE = 4 SOLD: 12/10/2019 [facility] 100 mg 11/05/2019 12:00:00 AM EDT tablet 30 TAKE ONE TABLET BY MOUTH EVERY DAY TAKE ONE TABLET BY MOUTH EVERY DAY SOLD: 02/06/2020 [facility] 1 mg 11/05/2019 12:00:00 AM EDT tablet 120 TAKE ONE TABLET BY MOUTH FOUR TIMES A DAY MAXIMUM DAILY DOSE = 4 TABLETS TAKE ONE TABLET BY MOUTH FOUR TIMES A DAY MAXIMUM DAILY DOSE = 4 TABLETS SOLD: 11/05/2019 [facility] 100 mg 11/05/2019 12:00:00 AM EDT tablet 30 TAKE ONE TABLET BY MOUTH EVERY DAY TAKE ONE TABLET BY MOUTH EVERY DAY SOLD: 11/05/2019 [facility] quetiapine 50 MG Oral Tablet QUETIAPINE FUMARATE 11/05/2019 12:0 0:00 AM EDT tablet 30 TAKE ONE TABLET BY MOUTH AT BEDT LAURA TAKE ONE TABLET BY MOUTH AT BEDTIME SOLD: 11/05/2019 [facility] 25 mg 11/05/2019 12:00:00 AM EDT tablet 120 TAKE ONE TABLET BY MOUTH FOUR TIMES A DAY TAKE ONE TABLET BY MOUTH FOUR TIMES A DAY SOLD: 11/05/2019 [facility] 50 mg 11/05/2019 12:00:00 AM EDT capsule 30 TAKE ONE CAPSULE BY MOUTH EVERY DAY IN THE MORNING MAXIMUM DAILY DOSE = 1 TAKE ONE CAPSULE BY MOUTH EVERY DAY IN THE MORNING MAXIMUM DAILY DOSE = 1 SOLD: 11/05/2019 [facility] 50 mg 10/07/2019 12:00:00 AM EDT capsule 30 TAKE ONE CAPSULE BY MOUTH EVERY DAY IN THE MORNING MAXIMUM DAILY DOSE = 1 TAKE ONE CAPSULE BY MOUTH EVERY DAY IN THE MORNING MAXIMUM DAILY DOSE = 1 SOLD: 10/07/2019 [facility] 1 mg 10/07/2019 12:00:00 AM EDT tablet 120 TAKE ONE TABLET BY MOUTH FOUR TIMES A DAY MAXIMUM DAILY DOSE = 4 TAKE ONE TABLET BY MOUTH FOUR TIMES A DA Y MAXIMUM DAILY DOSE = 4 SOLD: 10/07/2019 [facility] 1 mg 09/08/2019 12:00:00 AM EDT tablet 120 TAKE ONE TABLET BY MOUTH FOUR TIMES A DAY * MAXIMUM DAILY DOSE = 4 TAKE ONE TABLET BY MOUTH FOUR TIMES A DA Y * MAXIMUM DAILY DOSE = 4 SOLD: 09/08/2019 [facility] 50 mg 09/08/2019 12:00:00 AM EDT capsule 30 TAKE ONE CAPSULE BY MOUTH EVERY MORNING * MAXIMUM DAILY DOSE = 1 TAKE ONE CAPSULE BY MOUTH EVERY MORNING * MAXIMUM DAILY DOSE = 1 SOLD: 09/08/2019 [facility] 1 mg 08/08/2019 12:00:00 AM EDT tablet 120 TAKE ONE TABLET BY MOUTH FOUR TIMES A DAY MAXIMUM DAILY DOSE = 4 TABLETS TAKE ONE TABLET BY MOUTH FOUR TIMES A DAY MAXIMUM DAILY DOSE = 4 TABLETS SOLD: 08/08/2019 [facility] 50 mg 08/08/2019 12:00:00 AM EDT capsule 30 TAKE ONE CAPSULE BY MOUTH EVERY DAY IN THE MORNING MAXIMUM DAILY DOSE = 1 TAKE ONE CAPSULE BY MOUTH EVERY DAY IN THE MORNING MAXIMUM DAILY DOSE = 1 SOLD: 08/08/2019 [facility] 1 mg 07/09/2019 12:00:00 AM EDT tablet 120 TAKE 1 TABLET BY MOUTH FOUR TIMES A DAY MAXIMUM DAILY DOSE = 4 TAKE 1 TABLET BY MOUTH FOUR TIMES A DAY MAXIMUM DAILY DOSE = 4 SOLD: 07/09/[address] [facility] 50 mg 07/09/2019 12:00:00 AM EDT capsule 30 TAKE 1 CAPSULE BY MOUTH ONCE DAILY IN THE MORNING MAXIMUM DAILY DOSE = 1 TAKE 1 CAPSULE BY MOUTH ONCE DAILY IN THE MORNING MAXIMUM DAILY DOSE = 1 SOLD: 07/09/2019 [facility] 25 mg 06/07/2019 12:00:00 AM EDT tablet 120 TAKE ONE TABLET BY MOUTH FOUR TIMES A DAY TAKE ONE TABLET BY MOUTH FOUR TIMES A DAY SOLD: 06/09/2019 [facility] 100 mg 06/07/2019 12:00:00 AM EDT tablet 30 TAKE ONE TABLET BY MOUTH EVERY DAY TAKE ONE TABLET BY MOUTH EVERY DAY SOLD: 09/08/2019 [facility] 25 mg 06/07/2019 12:00:00 AM EDT tablet 120 TAKE ONE TABLET BY MOUTH FOUR TIMES A DAY TAKE ONE TABLET BY MOUTH FOUR TIMES A DAY SOLD: 07/09/2019 [facility] 25 mg 06/07/2019 12:00:00 AM EDT tablet 120 TAKE ONE TABLET BY MOUTH FOUR TIMES A DAY TAKE ONE TABLET BY MOUTH FOUR TIMES A DAY SOLD: 10/07/2019 [facility] 100 mg 06/07/2019 12:00:00 AM EDT tablet 30 TAKE ONE TABLET BY MOUTH EVERY DAY TAKE ONE TABLET BY MOUTH EVERY DAY SOLD: 10/07/2019 [facility] 1 mg 06/07/2019 12:00:00 AM EDT tablet 120 TAKE ONE TABLET BY MOUTH FOUR TIMES A DAY MAXIMUM DAILY DOSE = 4 TABLETS TAKE ONE TABLET BY MOUTH FOUR TIMES A DAY MAXIMUM DAILY DOSE = 4 TABLETS SOLD: 06/09/2019 [facility] 100 mg 06/07/2019 12:00:00 AM EDT tablet 30 TAKE ONE TABLET BY MOUTH EVERY DAY TAKE ONE TABLET BY MOUTH EVERY DAY SOLD: 06/09/2019 [facility] 100 mg 06/07/2019 12:00:00 AM EDT tablet 30 TAKE ONE TABLET BY MOUTH EVERY DAY TAKE ONE TABLET BY MOUTH EVERY DAY SOLD: 07/09/2019 [facility] 25 mg 06/07/2019 12:00:00 AM EDT tablet 120 TAKE ONE TABLET BY MOUTH FOUR TIMES A DAY TAKE ONE TABLET BY MOUTH FOUR TIMES A DAY SOLD: 09/08/2019 [facility] 50 mg 06/06/2019 12:00:00 AM EDT capsule 30 TAKE ONE CAPSULE BY MOUTH EVERY MORNING. MAXIMUM DAILY DOSE = 1 CAPSULE TAKE ONE CAPSULE BY MOUTH EVERY MORNING. MAXIMUM DAILY DOSE = 1 CAPSULE SOLD: 06/09/2019 [facility] 1 mg 05/08/2019 12:00:00 AM EST tablet 120 TAKE ONE TABLET BY MOUTH FOUR TIMES A DAY, MAXIMUM DAILY DOSE = 4 TAKE ONE TABLET BY MOUTH FOUR TIMES A DA Y, MAXIMUM DAILY DOSE = 4 SOLD: 05/08/2019 [facility] 50 mg 05/08/2019 12:00:00 AM EST capsule 30 TAKE ONE CAPSULE BY MOUTH EVERY MORNING MAXIMUM DAILY DOSE = 1 TAKE ONE CAPSULE BY MOUTH EVERY MORNING MAXIMUM DAILY DOSE = 1 SOLD: 05/08/2019 [facility]eti[facility] 50 MG Oral Tablet QUETIAPINE FUMARATE 04/09/2019 12:0 0:00 AM EST tablet 30 TAKE ONE TABLET BY MOUTH AT BEDT LAURA TAKE ONE TABLET BY MOUTH AT BEDTIME SOLD: 07/09/2019 [facility] quetiapine 50 MG Oral Tablet QUETIAPINE FUMARATE 04/09/2019 12:0 0:00 AM EST tablet 30 TAKE ONE TABLET BY MOUTH AT BEDT LAURA TAKE ONE TABLET BY MOUTH AT BEDTIME SOLD: 04/09/2019 [facility] 50 mg 04/09/2019 12:00:00 AM EST capsule 30 TAKE ONE CAPSULE BY MOUTH EVERY MORNING MAXIMUM DAILY DOSE = 1 TAKE ONE CAPSULE BY MOUTH EVERY MORNING MAXIMUM DAILY DOSE = 1 SOLD: 04/09/2019 [facility]etiapine 50 MG Oral Tablet QUETIAPINE FUMARATE 04/09/2019 12:0 0:00 AM EST tablet 30 TAKE ONE TABLET BY MOUTH AT BEDT LAURA TAKE ONE TABLET BY MOUTH AT BEDTIME SOLD: 09/08/2019 [facility] quetiapine 50 MG Oral Tablet QUETIAPINE FUMARATE 04/09/2019 12:0 0:00 AM EST tablet 30 TAKE ONE TABLET BY MOUTH AT BEDT LAURA TAKE ONE TABLET BY MOUTH AT BEDTIME SOLD: 10/07/2019 [facility] 1 mg 04/09/2019 12:00:00 AM EST tablet 120 TAKE ONE TABLET BY MOUTH FOUR TIMES A DAY MAXIMUM DAILY DOSE = 4 TAKE ONE TABLET BY MOUTH FOUR TIMES A DA Y MAXIMUM DAILY DOSE = 4 SOLD: 04/09/2019 [facility] Insurance Providers Payer name Policy type / Coverage type Policy ID Covered constitution party ID Covered constitution party's relationship to ellis Policy Ellis Plan Information [facility] [id number] SP [id number] [facility] O [id number] S [id number] [facility] [id number] SP [id number] MEDICAID [id number] SP [id number] [facility] [id number] SP [id number] MEDICARE [id number] SP [id number] [facility] [id number] SP [id number] [facility] COMPLET [id number] S [id number] MEDICAID [id number] S [id number] MEDICAID [id number] S [id number] [facility] DUAL COMPLET [id number] S [id number] [facility] [id number] S [id number] [place] [id number] S [id number] MEDICAID UNAVAILABLE [place] BLE MEDICAID [id number] S [id number] [facility] [id number] S [id number] [place] [id number] S [id number] MEDICARE PART A -O/P [id number] 18 [id number] [employer] COMMUNITY PLAN XIX [id number] 18 [id number] [facility] [employer] B C [id number] S [id number] MEDICAID M [id number] MEDICARE C [id number] S [id number] MEDICAID [id number] SP [id number] MEDICAID UNAVAILABLE [place] BLE UN[employer] COMMUNITY PLAN MCDO [id number] SP [id number] [facility] Community Plan Commercial Self Medicaid [place] Medicaid Self UN[facility] [place] O [id number] S [id number] [facility](MCAID) O [id number] S [id number] [facility] COMMUNITY PLAN MCDO [id number] SP [id number] OTHER WORKERS COMPENSATION [id number] SP [id number] UNHC COMMUNITY PLAN MCDHMO [id number] SP [id number] [facility] COMMUNITY PLAN MCDO [id number] SP [id number] MEDICAID [id number]
[2020-05-15] MEDS ORDERED: MUPI2OI TOP (06:57)
--- OUTSIDE RECORDS SUMMARY | 2020-05-15 07:02 | CCD ---
Author Author [facility] Organization [facility] Address Unknown Phone Unavailable Care Team Providers Care Kiln Placer Name Role Phone Alda Mast MD Unavailable [...] Unavailable Mast, Alda Reyes MD Unavailable Unavailable Amst, Alda Reyes MD Unavailable Unavailable Mast, Alda [...] is protected by Article 27-F of the [facility] Public Health law. If you continue you may have access to information: Regarding HIV / AIDS; Provided by facilities licensed or operated by the [facility] Office of Mental Health; or Provided by the [facility] Office for People With Developmental Disabilities. If such information is present, then the following [facility] mandated warning applies: This information has [...] law may result in a fine or mcc sentence or both. A general authorization for the release of medical or other information is NOT sufficient authorization for further disc losure. Family History Family Member Name Family Member Gender Family Member Status Date o f Status Description Data Source(s) Unknown Female Problem [facility] ([facility]) Unknown Female Problem [facility] ([facility]) Encounters Encounter Providers Location Date Indications Data Source(s ) Outpatient Attender: Eric WALDRON 09/02/2019 07:50:50 PM EDT [facility] Medications Medication Brand Name Start Date Product [...] TABLET BY MOUTH EVERY DAY SOLD: 05/06/2020 [facility] quetiapine 50 MG Oral Tablet QUETIAPINE FUMARATE [...] type / Coverage type Policy ID Covered green party ID Covered green party's relationship to ellis Policy Ellis Plan Information [facility] [id number] SP [id number] [facility] HE[facility] CARE O [id number] S [id number] [facility] [id number] SP [id number] MEDICAID [id number] SP [id number] [facility] [id number] SP [id number] MEDICARE [id number] SP [id number] [facility] [id number] SP [id number] [facility] [id number] S [id number] MEDICAID [id number] S [id number] MEDICAID [id number] S [id number] [facility] DUAL COMPLET [id number] S [id number] [facility] [employer] [facility] [id number] S [id number] [place] [id number] S [id number] MEDICAID UNAVAILABLE [place] BLE MEDICAID [id number] S [id number] [facility] [employer] [id number] S [id number] [place]IC[place] [id number] S [id number] MEDICARE PART A -O/P [id number] 18 [id number] [employer] COMMUNITY PLAN XIX [id number] 18 [id number] [employer] PART B C [id number] S [id number] MEDICAID M [id number] S [id number] MEDICARE C [id number] S [id number] MEDICAID [id number] SP [id number] MEDICAID UNAVAILABLE UNA[place]ILA BLE [employer]HC COMMUNITY PLAN MCDO [id number] SP [id number] [facility] Community Plan Commercial Self Medicaid [place] Medicaid Self UNHC [facility] [place] O [id number] S [id number] [facility](MCAID) O [id number] S [id number] [facility] COMMUNITY PLAN MCDHMO [id number] SP [id number] OTHER WORKERS COMPENSATION [id number] SP [id number] [employer] COMMUNITY PLAN MCDHMO [id number] SP [id number] [facility] COMMUNITY PLAN MCDHMO [id number] SP [id number] MEDICAID [id number] SP [id number]
== END 2020-05-15 07:07 | disposition home or self-care (01) ==
LOC: M ED 05:57
DX: L73.0 Acne keloid (principal); J45.909 Unspecified asthma, uncomplicated; F33.9 Major depressive disorder, recurrent, unspecified; F41.9 Anxiety disorder, unspecified; F43.10 Post-traumatic stress disorder, unspecified; K21.9 Gastro-esophageal reflux disease without esophagitis; Z77.098 Contact with and (suspected) exposure to other hazardous, chiefly nonmedicinal, chemicals

== ENCOUNTER 2020-09-12 08:00 | Emergency (ER) | payer OTHER ==
[~2020-09-12] VITALS: Ht 172.7 cm; Wt 109.1 kg
[~2020-09-12 08:00] MED LIST changes: +MUPI2OI TOP
[2020-09-12] MEDS ORDERED: QUET100T2 (08:21)
[2020-09-12] MEDS ORDERED: ALPR1TAB3 (08:21)
[2020-09-12] MEDS ORDERED: VYVA50CA4 (08:21)
[2020-09-12] MEDS ORDERED: HYDR-3363 (08:21)
--- NOTE | 2020-09-12 09:24 | REP ---
INDICATION: trauma. COMPARISON: None. TECHNIQUE: Four views left hand 5th digit FINDINGS: No acute fracture or destructive osseous lesion. IMPRESSION: No acute osseous abnormality <Electronically signed by Smith Nascimento > 09/12/20 [id number]
[2020-09-12] MEDS ORDERED: CEPHALEXIN 500 MG CAP PO ONE (11:15)
[2020-09-12] MEDS ORDERED: BOOSTRIX/ADACEL VACCINE (DIPHTH/PERTUSS/ACELL/TETANUS) 0.5ML SYR IM ONE (11:15)
[2020-09-12] MEDS ORDERED: CEPH500C PO (11:17)
[2020-09-12 11:42] VITALS: BP 135/71
== END 2020-09-12 11:42 | disposition home or self-care (01) ==
LOC: M ED 08:00
DX: S61.217A Laceration without foreign body of left little finger without damage to nail, initial encounter (principal); S60.512A Abrasion of left hand, initial encounter; V28.4XXA Motorcycle driver injured in noncollision transport accident in traffic accident, initial encounter; Y92.410 Unspecified street and highway as the place of occurrence of the external cause; Z79.899 Other long term (current) drug therapy; F17.210 Nicotine dependence, cigarettes, uncomplicated

== ENCOUNTER 2021-06-05 20:40 | Emergency (ER) | payer OTHER ==
[~2021-06-05] VITALS: Ht 175.3 cm; Wt 116.0 kg
[2021-06-05 20:40] VITALS: BP 138/91
[~2021-06-05 20:40] MED LIST changes: +ALPR1TAB3; +CEPH500C PO; +QUET100T2; -QUET50TA3 PO; +QUET50TA4 PO; +VYVA50CA4
[2021-06-05] MEDS ORDERED: FLON1SPR NARES (21:32)
[2021-06-05] MEDS ORDERED: CLAR10CA3 PO (21:32)
[2021-06-05] MEDS ORDERED: diphenhydrAMINE 25MG CAP PO ONE (21:45)
== END 2021-06-05 21:53 | disposition home or self-care (01) ==
LOC: M ED 20:40
DX: Z76.0 Encounter for issue of repeat prescription (principal); J30.9 Allergic rhinitis, unspecified; Z87.891 Personal history of nicotine dependence

== ENCOUNTER → 2022-08-01 | Outpatient (REF) | payer OTHER, MEDICAID ==
[~2022-08-01] MED LIST changes: +CLAR10CA3 PO; +FLON1SPR NARES
[2022-08-01 16:48] LABS: ALKALINE PHOSPHATASE 104 U/L (46-116); ALT/SGPT 29 U/L (7.0-40); AST/SGOT 34 U/L (<34); BILIRUBIN,TOTAL 0.5 MG/DL (0.3-1.2); BLOOD UREA NITROGEN 12 MG/DL (9-23); CALCIUM LEVEL 9.2 MG/DL (8.5-10.1); CARBON DIOXIDE LEVEL 26 MMOL/L (20-31); CHLORIDE LEVEL 104 MMOL/L (98-107); CHOLESTEROL LEVEL 192 MG/DL (<200); CHOLESTEROL RISK RATIO 4.66 (<5); CREATININE FOR GFR 1.06 MG/DL (0.70-1.30); GLOMERULAR FILTRATION RATE > 60.0 (>60); GLUCOSE, FASTING 144 MG/DL (60-100); HDL CHOLESTEROL 41.2 MG/DL (>40); NON-HDL-C 150.8 MG/DL; POTASSIUM SERUM 4.1 MMOL/L (3.5-5.1); SODIUM LEVEL 136 MMOL/L (136-145); TOTAL PROTEIN 7.4 G/DL (5.7-8.2); TRIGLYCERIDES LEVEL 269 MG/DL (<150)
[2022-08-01 16:50] LABS: THYROID STIMULATING HORMONE 0.942 uIU/ML (0.55-4.78)
== END ==
LOC: M LAB REF 16:23
PROVIDERS: ATTEND Family Medicine Addiction Medicine
DX: E66.3 Overweight (principal)

== ENCOUNTER → 2022-09-07 | Day surgery (SDC) | payer OTHER ==
[~2022-09-07] VITALS: Ht 175.3 cm; Wt 108.9 kg
[~2022-09-07] MED LIST changes: +CETI10CH PO; +LIDOCAINE 2% 100MG/5ML SDV (FOR ANES.) As Ordered ONE; +METF500T13 PO; +NS 1,000 ML IV ONE; +fentaNYL 100 MCG/2 ML INJECTION As Ordered ONE; +inhaler INH; +propofoL 200 MG/20 ML VIAL As Ordered ONE
[2022-09-07 14:10] VITALS: TEMP 97.6
[2022-09-07 14:30] VITALS: BP 126/58; O2SAT 94
== END | disposition home or self-care (01) ==
LOC: M OPP 10:49
PROVIDERS: ATTEND Internal Medicine Gastroenterology
DX: Z12.11 Encounter for screening for malignant neoplasm of colon (principal); D12.1 Benign neoplasm of appendix; K64.8 Other hemorrhoids; K22.89 Other specified disease of esophagus; K29.70 Gastritis, unspecified, without bleeding; R10.13 Epigastric pain; Z83.71 Family history of colonic polyps; R12 Heartburn
CPT/HCPCS: 43239; 45380; 88305; J3010

== ENCOUNTER 2022-09-27 07:37 | Emergency (ER) | payer OTHER ==
[~2022-09-27] VITALS: Ht 175.3 cm; Wt 112.3 kg
[~2022-09-27 07:37] MED LIST changes: -LIDOCAINE 2% 100MG/5ML SDV (FOR ANES.) As Ordered ONE; -NS 1,000 ML IV ONE; -fentaNYL 100 MCG/2 ML INJECTION As Ordered ONE; -propofoL 200 MG/20 ML VIAL As Ordered ONE
[2022-09-27] MEDS ORDERED: VYVA50CA4 (07:47)
[2022-09-27] MEDS ORDERED: ALPR1TAB3 (07:47)
[2022-09-27] MEDS ORDERED: OMEP40CA5 (07:47)
[2022-09-27] MEDS ORDERED: LAMO100T3 (07:47)
[2022-09-27] MEDS ORDERED: QUET50TA4 (07:47)
[2022-09-27] MEDS ORDERED: NS 1,000 ML IV ONE (09:35)
[2022-09-27 10:04] LABS: BASO # 0.1 10^3/uL (0.0-0.2); BASO % 0.8 % (0.0-1.0); EOS # 0.4 10^3/uL (0.0-0.5); EOS % 4.7 % (0.0-3.0); HEMATOCRIT 43.8 % (42.0-52.0); HEMOGLOBIN 14.6 g/dl (13.5-17.5); LYMPH % 25.4 % (24.0-44.0); MEAN CORPUSCULAR HEMOGLOBIN 27.4 pg (27.0-33.0); MEAN CORPUSCULAR HGB CONC 33.3 g/dl (32.0-36.5); MEAN CORPUSCULAR VOLUME 82.2 fl (80.0-96.0); MONO # 0.8 10^3/uL (0.0-0.8); MONO % 9.8 % (2.0-8.0); NEUTROPHILS # 4.6 10^3/uL (1.5-8.5); NEUTROPHILS % 58.7 % (36.0-66.0); PLATELET COUNT, AUTOMATED 287 10^3/uL (150-450); RED BLOOD COUNT 5.33 10^6/uL (4.30-6.10); WHITE BLOOD COUNT 7.9 10^3/uL (4.0-10.0)
[2022-09-27 10:21] LABS: INR 0.88; PARTIAL THROMBOPLASTIN TIME 27.5 SECONDS (24.8-34.2); PROTHROMBIN TIME 12.1 SECONDS (12.5-14.5)
[2022-09-27 10:24] LABS: D-DIMER QUANT 378.15 ng/ml (<500)
[2022-09-27 10:26] LABS: HEMOGLOBIN A1c 5.8 % (4.0-6.0)
[2022-09-27 10:33] LABS: CK-MB VALUE MASS 3.5 NG/ML (<3.6)
[2022-09-27 10:34] LABS: MAGNESIUM LEVEL 1.9 MG/DL (1.8-2.4)
[2022-09-27 10:37] LABS: THYROID STIMULATING HORMONE 1.039 uIU/ML (0.55-4.78)
[2022-09-27 10:38] LABS: FREE T4 1.03 NG/DL (0.89-1.76)
[2022-09-27 10:40] LABS: MB/CK RELATIVE INDEX 0.51 (< OR =4)
[2022-09-27 11:05] VITALS: O2SAT 96
[2022-09-27 11:06] VITALS: TEMP 97.7
[2022-09-27 11:12] VITALS: BP 134/76
== END 2022-09-27 11:19 | disposition home or self-care (01) ==
LOC: M ED 07:37
DX: M62.82 Rhabdomyolysis (principal); E11.9 Type 2 diabetes mellitus without complications; J45.909 Unspecified asthma, uncomplicated; K21.9 Gastro-esophageal reflux disease without esophagitis; M54.9 Dorsalgia, unspecified; F41.9 Anxiety disorder, unspecified; F32.A Depression, unspecified; F43.10 Post-traumatic stress disorder, unspecified; Z79.899 Other long term (current) drug therapy

== ENCOUNTER 2023-01-21 04:08 | Emergency (ER) | payer OTHER ==
[~2023-01-21] VITALS: Ht 175.3 cm; Wt 106.8 kg
[~2023-01-21 04:08] MED LIST changes: +OMEP40CA5; +QUET50TA4
[2023-01-21 05:04] LABS: HEMATOCRIT 43.4 % (42.0-52.0); HEMOGLOBIN 14.4 g/dl (13.5-17.5); MEAN CORPUSCULAR HEMOGLOBIN 27.2 pg (27.0-33.0); MEAN CORPUSCULAR HGB CONC 33.2 g/dl (32.0-36.5); PLATELET COUNT, AUTOMATED 280 10^3/uL (150-450); RED BLOOD COUNT 5.29 10^6/uL (4.30-6.10); WHITE BLOOD COUNT 9.9 10^3/uL (4.0-10.0)
[2023-01-21 05:24] LABS: AMPHETAMINES LEVEL URINE NEGATIVE (NEGATIVE); BARBITURATES URINE NEGATIVE (NEGATIVE); BENZODIAZEPINES URINE NEGATIVE (NEGATIVE); CANNABINOIDS URINE NEGATIVE (NEGATIVE); COCAINE METABOLITE URINE NEGATIVE (NEGATIVE); METHADONE URINE NEGATIVE (NEGATIVE); OPIATES URINE NEGATIVE (NEGATIVE); PHENCYCLIDINE URINE NEGATIVE (NEGATIVE)
[2023-01-21 05:26] LABS: ETHYL ALCOHOL (ETHANOL) 0.096 % (0.000-0.010)
[2023-01-21 05:28] LABS: ALBUMIN 3.5 G/DL (3.2-5.2); ALKALINE PHOSPHATASE 103 U/L (46-116); ALT/SGPT 30 U/L (7.0-40); AST/SGOT 35 U/L (<34); BILIRUBIN,DIRECT 0.1 MG/DL (<0.4); BILIRUBIN,TOTAL 0.5 MG/DL (0.3-1.2); BLOOD UREA NITROGEN 11 MG/DL (9-23); CALCIUM LEVEL 8.7 MG/DL (8.5-10.1); CARBON DIOXIDE LEVEL 24 MMOL/L (20-31); CHLORIDE LEVEL 106 MMOL/L (98-107); CREATININE FOR GFR 1.04 MG/DL (0.70-1.30); GLOMERULAR FILTRATION RATE > 60.0 (>60); GLUCOSE, FASTING 108 MG/DL (60-100); POTASSIUM SERUM 3.9 MMOL/L (3.5-5.1); SALICYLATE LEVEL < 3.0 MG/DL (<30); SODIUM LEVEL 143 MMOL/L (136-145); TOTAL PROTEIN 7.2 G/DL (5.7-8.2)
[2023-01-21 05:30] LABS: THYROID STIMULATING HORMONE 1.584 uIU/ML (0.55-4.78)
[2023-01-21 08:39] VITALS: BP 133/84; TEMP 97.5; O2SAT 98
== END 2023-01-21 08:42 | disposition home or self-care (01) ==
LOC: M ED 04:08
DX: F43.0 Acute stress reaction (principal); F32.A Depression, unspecified; F41.9 Anxiety disorder, unspecified; F43.10 Post-traumatic stress disorder, unspecified; Z79.899 Other long term (current) drug therapy

== ENCOUNTER → 2024-01-04 | Outpatient (REF) | payer OTHER ==
[~2024-01-04] MED LIST changes: -KLON1TAB PO; +KLON1TAB13 PO
[2024-01-04 14:07] LABS: ALBUMIN 3.5 G/DL (3.2-5.2); ALKALINE PHOSPHATASE 99 U/L (46-116); ALT/SGPT 41 U/L (7.0-40); AST/SGOT 36 U/L (<34); BILIRUBIN,TOTAL 0.6 MG/DL (0.3-1.2); BLOOD UREA NITROGEN 17 MG/DL (9-23); CALCIUM LEVEL 9.6 MG/DL (8.5-10.1); CARBON DIOXIDE LEVEL 28 MMOL/L (20-31); CHLORIDE LEVEL 106 MMOL/L (98-107); CHOLESTEROL LEVEL 195 MG/DL (<200); CHOLESTEROL RISK RATIO 5.68 (<5); CREATININE FOR GFR 1.05 MG/DL (0.70-1.30); GLOMERULAR FILTRATION RATE > 60.0 (>60); GLUCOSE, FASTING 113 MG/DL (60-100); HDL CHOLESTEROL 34.3 MG/DL (>40); LDL CHOLESTEROL 111.9 MG/DL (<100); NON-HDL-C 160.7 MG/DL; POTASSIUM SERUM 4.2 MMOL/L (3.5-5.1); SODIUM LEVEL 139 MMOL/L (136-145); TOTAL PROTEIN 7.2 G/DL (5.7-8.2); TRIGLYCERIDES LEVEL 244 MG/DL (<150)
== END ==
LOC: M LAB REF 13:14
PROVIDERS: ATTEND Family Medicine Addiction Medicine
DX: R73.03 Prediabetes (principal)

== ENCOUNTER → 2024-05-23 | Outpatient (CLI) | payer OTHER | LOC: M OUTALCOH 11:01 | PROVIDERS: ATTEND Counselor Addiction (Substance Use Disorder) | DX: Z03.89 Encounter for observation for other suspected diseases and conditions ruled out (principal) ==

== ENCOUNTER → 2025-01-02 | Outpatient (REF) | payer OTHER ==
[~2025-01-02] MED LIST changes: -IBUP-1022 PO; +IBUP600T42 PO
[2025-01-02 14:44] LABS: BASO # 0.0 10^3/uL (0.0-0.2); BASO % 0.5 % (0.0-1.0); EOS # 0.2 10^3/uL (0.0-0.5); EOS % 1.8 % (0.0-3.0); LYMPH # 2.1 10^3/uL (1.5-5.0); LYMPH % 24.1 % (24.0-44.0); MONO # 0.9 10^3/uL (0.0-0.8); MONO % 10.2 % (2.0-8.0); NEUTROPHILS # 5.5 10^3/uL (1.5-8.5); NEUTROPHILS % 63.1 % (36.0-66.0); PLATELET COUNT, AUTOMATED 298 10^3/uL (150-450)
[2025-01-02 15:38] LABS: PSA SCREENING 0.78 NG/ML (< 4.00)
[2025-01-02 15:40] LABS: ALT/SGPT 32.0 U/L (7.0-40); AST/SGOT 34.0 U/L (<34); CALCIUM LEVEL 8.8 MG/DL (8.5-10.1); CARBON DIOXIDE LEVEL 27.0 MMOL/L (20-31); CHLORIDE LEVEL 106.0 MMOL/L (98-107); CHOLESTEROL LEVEL 198.0 MG/DL (<200); CHOLESTEROL RISK RATIO 5.46 (<5); CREATININE FOR GFR 1.13 MG/DL (0.70-1.30); GLOMERULAR FILTRATION RATE 83.2 (>60); LDL CHOLESTEROL 105.8 MG/DL (<100); NON-HDL-C 161.8 MG/DL; POTASSIUM SERUM 4.4 MMOL/L (3.5-5.1); SODIUM LEVEL 140.0 MMOL/L (136-145); TRIGLYCERIDES LEVEL 280.0 MG/DL (<150)
[2025-01-02 15:56] LABS: ESTIMATED AVERAGE GLUCOSE 117.0 MG/DL (60-110)
== END ==
LOC: M LAB REF 10:22
PROVIDERS: ATTEND Internal Medicine Gastroenterology
DX: R73.03 Prediabetes (principal); B96.81 Helicobacter pylori [H. pylori] as the cause of diseases classified elsewhere; Z12.5 Encounter for screening for malignant neoplasm of prostate

== ENCOUNTER → 2025-03-04 | Outpatient (REF) | payer OTHER, MEDICAID | LOC: M LAB REF 16:11 | PROVIDERS: ATTEND Internal Medicine Gastroenterology | DX: B96.81 Helicobacter pylori [H. pylori] as the cause of diseases classified elsewhere (principal) ==